=== PATIENT | female | born 1940 | race Caucasian/White ===

== ENCOUNTER 2017-07-08 19:23 | Inpatient (IN) | payer OTHER ==
[2017-07-08 19:40] VITALS: BMI 30.9
[2017-07-08] MEDS ORDERED: MORPHINE 2 MG/ML SYRINGE IM STA (19:44)
[2017-07-08] MEDS ORDERED: ZOFRAN 4 MG/2 ML IM STA (19:45)
--- NOTE | 2017-07-08 20:24 | CT ---
EXAM: CT pelvis without contrast HISTORY: Low back pain TECHNIQUE: Multi-slice transaxial helical with coronal and sagittal reformed images COMPARISON: None FINDINGS: The bones are osteopenic. There is suggestion of previous bone harvesting from the iliac c rests bilaterally. The femoral acetabular joint spaces are moderately narrowed bilaterally. Minimal osteophyte formation is detected at the sacroiliac joint spaces. The pubic symphysis has mild norah nal osteophyte formation. There postsurgical changes in the lumbar region. There is anterolisthesis of L4 on L5 of 8.5 mm. The aorta and iliac arteries are atherosclerotic. The visible intestines have normal caliber. The u terus is absent and there are no adnexal masses. No lymphadenopathy or ascites are appreciated. Div erticula arise from sigmoid colon without CT evidence of diverticulitis. The bones are free of suspicious osteolytic or osteoblastic lesions. IMPRESSION: 1. No acute fracture or subluxation. 2. Osteopenia and osteoarthritis. 3. Colonic diverticulosis without CT evidence of diverticulitis. 4. Postsurgical changes in the lumbar region.
--- NOTE | 2017-07-08 20:28 | CT ---
EXAM: CT thoracic spine without contrast HISTORY: Back pain TECHNIQUE: Multislice helical with reformatted images COMPARISON: None FINDINGS: The bones are diffusely osteopenic. There is a mild anterior wedge compression deformity at T4 that is probably chronic. There is 21 degrees of dextroscoliosis between T6 and T11. The inter vertebral joint spaces are moderately narrowed diffusely. No acute fracture or listhesis are appreci ated. No significant disc herniation or central canal stenosis are appreciated. There is suggestion of multilevel neural foramen stenosis secondary to facet hypertrophy. IMPRESSION: 1. No acute fracture or listhesis. 2. Mild chronic compression deformity at T4. 3. Moderate diffuse degenerative disc disease. 4. Osteopenia. 5. 21 degrees of dextroscoliosis between T6 and T11. 5. Multilevel neural foramen stenosis secondary to facet hypertrophy.
--- NOTE | 2017-07-08 20:32 | CT ---
EXAM: CT lumbar spine without contrast HISTORY: Low back pain TECHNIQUE: Multi-slice transaxial helical with coronal and sagittal reformatted views. COMPARISON: None FINDINGS: There are six [id number] lumbar-type vertebrae. Paired transpedicular screws are inta ct and in satisfactory position and L3-L4. There is suggestion of previous intervertebral fusion at L4-L5, L5-L6, and L6-S1. The facets are ankylosed between L4-L5, L5 and L6, and L6-S1. The nonfused intervertebral levels are moderately narrowed diffusely. There is retrolisthesis of L1 on L2 of 2.3 mm and retrolisthesis of L2 on L3 of 2.1 mm. In addition, there is anterolisthesis of L5 on L6 of 5 .9 mm. No acute fracture or listhesis are detected in the vertebrae have normal height. The bones di ffuse osteopenia. The aorta is atherosclerotic. There is nonspecific fat stranding surrounding the right kidney. A nonobstructing calculus at the inferior pole of the right kidney is 5.2 mm. There i s suggestion of mild right ureterectasis of undetermined etiology. Segmental analysis: The images are acquired without orthogonal technique. No central canal stenosis is appreciated. There is suggestion of minimal to mild multilevel neural foramen stenosis. IMPRESSION: 1. No acute fracture or listhesis. 2. Mild right ureterectasis of undetermined etiology. Nonobstructing right nephrolith. 3. Previous posterior longitudinal lumbar spinal fusion at L3-L4. Previous intervertebral fusion tinsley ggested at L4-L5, L5-L6, and L6-S1. 4. Osteopenia and ASCVD. 5. Grade 1 retrolisthesis of L1 on L2 and L2 on L3. 6. Grade 1 anterolisthesis of L5 on L6.
--- NOTE | 2017-07-08 20:51 | CT ---
EXAM: CT abdomen and pelvis without contrast HISTORY: Hematuria and back pain TECHNIQUE: Multi-slice transaxial helical with coronal and sagittal reformed images COMPARISON: CT lumbar spine from 07/08/[address] pelvis from 07/08/2017 FINDINGS: The heart size is normal. A moderate hiatus hernia is noted. No pericardial or pleural ef fusions are detected. Calcified mediastinal right hilar lymph nodes are noted. Minimal dependent at electasis is noted. The hepatic attenuation is normal relative to the spleen. The gallbladder is surgically absent. No significant biliary dilatation is detected. The pancreas is mildly atrophic. The adrenal glands are normal. The spleen has normal size and attenuation. The left kidney has normal size and attenuatio n. A nonobstructing calculus at the inferior pole of the right kidney is 5.6 mm. There is fat stranding around the right kidney. There is mild right ureterectasis without evidence of an obstructing calcu aleks. No bladder calculi are evident. The bladder is incompletely full. The left renal collecting s ystem has normal caliber. The uterus is absent and there are no adnexal masses. Diverticula arise from sigmoid colon without CT evidence of diverticulitis. No intestinal distension is evident. The abdominal aorta is atherosclerotic with normal caliber. No lymphadenopathy or asci zenaida. The bones are free of suspicious osteolytic or osteoblastic lesions. IMPRESSION: 1. Nonspecific right perinephric edema and mild right ureterectasis of undetermined etiology. No ra diopaque obstructing calculus is appreciated. No obstructing ureterolithiasis appreciated. Urology c onsultation recommended. 2. Nonobstructing nephrolith at the inferior pole of the right kidney. 3. Moderate hiatus hernia. 4. Colonic diverticulosis without CT evidence of diverticulitis. 5. ASCVD.
[2017-07-08] MEDS ORDERED: SODIUM CHLORIDE 1,000 ML IV STA (21:01)
--- NOTE | 2017-07-08 21:04 | ED.PDOC ---
General ED Provider: Dr. ANGÉLICA LOMAS-ER Chief Complaint: Back Pain Stated Complaint: my back hurts--family says fever she denies it Time Seen by Physician: 19:35 Mode of Arrival: Walk-In Information Source: Patient, Family Exam Limitations: No limitations Primary Care Provider: CARLTON GARCIA Nursing and Triage Documentation Reviewed and Agree: Yes Reviewed sepsis parameters & appropriate labs ordered?: Yes System Inflammatory Response Syndrome: Not Applicable Sepsis Protocol: For patient's 13 years and over: Temp is 96.8 and below OR 101 and greater Pulse >90 BPM Resp >20/minute Acutely Altered Mental Status Are patient's symptoms suggestive of a new infection, such as: -Pneumonia -Skin, Soft Tissue -Endocarditis -UTI -Bone, Joint Infection -Implantable Device -Acute Abdominal Infection -Wound Infection -Meningitis -Blood Stream Catheter Infection -Unknown Complaint Exam - UTI Female Complaint/Exam Patient Complains of: Reports: Painful urination Onset/Duration: unknown Symptoms Are: Still present Timing: Constant Initial Severity: Mild Current Severity: Moderate Location of Pain: Reports: Right, Flank Associated Signs and Symptoms: Reports: Fever, Chills, Flank pain Patient Rh Status: Unknown CVA Tenderness: Yes Suprapubic Tenderness: No Differential Diagnoses: Pyelonephritis Review of Systems - Review Of Systems Constitutional: Reports: Chills, Fever Eyes: Reports: No symptoms Ears, Nose, Mouth, Throat: Reports: No symptoms Respiratory: Reports: No symptoms Cardiac: Reports: No symptoms GI: Reports: No symptoms : Reports: No symptoms Musculoskeletal: Reports: Back pain Skin: Reports: No symptoms Neurological: Reports: No symptoms Endocrine: Reports: No symptoms Hematologic/Lymphatic: Reports: No symptoms All Other Systems: Reviewed and Negative Past Medical History - Past Medical History Previously Healthy: Yes Endocrine: Reports: Unknown Cardiovascular: Reports: Unknown Respiratory: Reports: Unknown Hematological: Reports: Unknown Gastrointestinal: Reports: Unknown Genitourinary: Reports: Unknown Neuro/Psych: Reports: Unknown Musculoskeletal: Reports: Unknown Cancer: Reports: Unknown Last Menstrual Period: hysterectomy - Surgical History General Surgical History: Reports: Unknown - Family History Family History: Reports: Unknown - Social History Smoking Status: Former smoker Hx Substance Use: No Alcohol Screening: None Lives: With family - Immunizations Tetanus Shot up to Date: No (unknown) Physical Exam - Physical Exam Appearance: Well-appearing, No pain distress, Well-nourished Pain Distress: Moderate Eyes: TONO, EOMI, Conjunctiva clear ENT: Ears normal, Nose normal, Oropharynx normal Neck: Supple Respiratory: Airway patent, Breath sounds clear, Breath sounds equal, Respirations nonlabored Cardiovascular: RRR, Pulses normal, No rub, No murmur GI/: Soft, Nontender, No masses, Bowel sounds normal, No Organomegaly Musculoskeletal: Normal strength Skin: Warm, Dry, Normal color Neurological: Sensation intact, Alert, Oriented Psychiatric: Affect appropriate, Mood appropriate Interpretation - Radiology Interpretation Radiology Interpretation By: Radiologist Radiology Results: Positive Exam Interpreted: CT Scan Physician Notification - Case Discussed Physician Notified: dr garcia Time of Notification: 21:06 Critical Care Note - Critical Care Note Total Time (mins): 0 Course - Course Hematology/Chemistry: 07/08/17 20:10 07/08/17 20:10 Orders, Labs, Meds: Lab Review 07/08/17 07/08/17 07/08/17 20:00 20:10 20:10 WBC 25.90 H RBC 4.44 Hgb 13.5 Hct 41.4 MCV 93.2 MCH 30.4 MCHC 32.6 RDW Coeff of Merari 13.8 Plt Count 256 Neutrophils % (Manual) 47.0 Lymphocytes % (Manual) 50.0 Monocytes % (Manual) 1.0 Reactive Lymphocytes 2.0 Anisocytosis Not present Sodium 142 Potassium 4.2 Chloride 103 Carbon Dioxide 27 Anion Gap 16.2 BUN 14 Creatinine 0.96 Estimated GFR (MDRD) 56.00 BUN/Creatinine Ratio 14.58 Glucose 222 H Calcium 9.4 Total Bilirubin 1.2 AST 21 ALT 18 Alkaline Phosphatase 72 Total Protein 6.7 Albumin 3.6 Globulin 3.1 Albumin/Globulin Ratio 1.16 Urine Color Brown Urine Clarity Cloudy Urine pH 7.0 Ur Specific [place] 1.020 Urine Protein 2+ Urine Glucose (UA) 1+ Urine Ketones 1+ Urine Blood 3+ Urine Nitrite Positive Urine Bilirubin 1+ Urine Urobilinogen 1.0 Ur Leukocyte Esterase 1+ Urine Microscopic RBC 50-100 Urine Microscopic WBC 5-10 Ur Squamous Epith Cells Not present Orders Category Date Time Status ED IV/MEDIPORT/POWERPORT .ONCE EMERGENCY 07/08/17 21:01 Active CBC W/ AUTO DIFF Stat LAB 07/08/17 20:10 Completed COMPREHENSIVE METABOLIC PANEL Stat LAB 07/08/17 20:10 Completed MANUAL DIFFERENTIAL Stat LAB 07/08/17 20:10 Completed PT WITH INR Stat LAB 07/08/17 21:04 Ordered UA [URINALYSIS C & S IF INDICATED] Stat LAB 07/08/17 20:00 Completed URINE CULTURE Stat LAB 07/08/17 20:25 Received 0.9 % Sodium Chloride [Saline Flush] MEDS 07/08/17 21:01 Ordered 1 syr IVF PRN PRN Aztreonam [Azactam] 1 gm MEDS 07/09/17 05:00 Ordered 0.9 % Sodium Chloride [Sodium Chloride] 50 ml IV Q8HR Morphine Sulfate [Morphine 2 mg/ml Syringe] MEDS 07/08/17 19:44 Discontinued 4 mg IM ONCE STA Ondansetron HCl/Pf [Zofran 4 mg/2 ml] MEDS 07/08/17 19:45 Discontinued 4 mg IM ONCE STA Sodium Chloride 0.9% [Sodium Chloride] 1,000 ml MEDS 07/08/17 21:01 Active IV 100 mls/hr CT ABDOMEN/PELVIS WO CONTRAST Stat RADS 07/08/17 20:[address] LUMBAR SPINE W/O CONTRAST Stat RADS 07/08/17 19:[address] PELVIS W/O CONTRAST Stat RADS 07/08/17 19:[address] THORACIC SPINE W/O CONTRAST Stat RADS 07/08/17 19:49 Completed Medications Generic Name Dose Route Start Last Admin Trade Name Freq PRN Reason Stop Dose Admin Sodium Chloride 1,000 mls @ 100 mls/hr 07/08/17 21:01 Sodium Chloride IV 07/09/17 07:00 .Q10H STA Aztreonam 1 gm/ Sodium 50 mls @ 75 mls/hr 07/09/17 05:00 Chloride IV Q8HR BRAD Sodium Chloride 1 syr 07/08/17 21:01 Saline Flush IVF PRN PRN To flush IV Discontinued Medications Generic Name Dose Route Start Last Admin Trade Name Freq PRN Reason Stop Dose Admin Morphine Sulfate 4 mg 07/08/17 19:44 07/08/17 19:51 Morphine 2 Mg/Ml Syringe IM 07/08/17 19:45 4 mg ONCE STA Administration Ondansetron HCl 4 mg 07/08/17 19:45 07/08/17 19:53 Zofran 4 Mg/2 Ml IM 07/08/17 19:46 4 mg ONCE STA Administration Vital Signs: Temp Pulse Resp BP Pulse Ox 07/08/17 19:28 98.9 F 109 H 20 163/82 H 93 L Departure - Departure Time of Disposition: 21:06 Disposition: ADMITTED INPATIENT Discharge Problem: Pyelonephritis Instructions: Kidney Infection (ED) Condition: Fair Pt referred to PMD for follow-up: Yes IPMP verified?: No Allergies/Adverse Reactions: Allergies cephalexin monohydrate [From Keflex] Adverse Reaction (Verified 07/08/17 21:03) Rash Home Medications: Ambulatory Orders Duloxetine HCl [Cymbalta] 60 mg PO DAILY 05/28/13 Eszopiclone [Lunesta] 2 mg PO BEDTIME 05/28/13 Gabapentin [Neurontin] 300 mg PO BEDTIME 05/28/13 Rosuvastatin Calcium [Crestor] 10 mg PO BEDTIME 05/28/13 Sitagliptin Phosphate [Januvia] 50 mg PO DAILY 05/28/13 Warfarin Sodium [Coumadin] 6 mg PO DAILY 05/28/13 Hydrocodone/Acetaminophen [Hydrocodone-Acetamin 7.5-325] 1 tab PO TID 07/08/17 Potassium Chloride [K-Dur] 20 meq PO BID 07/08/17 Disposition Discussed With: Patient, Family
[2017-07-08] MEDS ORDERED: MORPHINE 2 MG/ML SYRINGE IVP PRN (21:10)
[2017-07-08] MEDS ORDERED: ZOFRAN 4 MG/2 ML IVP PRN (21:11)
[2017-07-08] MEDS ORDERED: ROCEPHIN 1 GM in SODIUM CHLORIDE 50 ML IV STA (22:53)
[2017-07-08] MEDS ORDERED: ROCEPHIN ONE (23:02)
[2017-07-09] MEDS ORDERED: AZACTAM 1 GM in SODIUM CHLORIDE 50 ML IV SCH (05:00)
[2017-07-09] MEDS ORDERED: TORADOL IVP PRN (07:48)
[2017-07-09] MEDS: NORCO 7.5-325 PO SCH ×3 (08:35→20:45)
[2017-07-09] MEDS: AZACTAM 1 GM in SODIUM CHLORIDE 50 ML IV SCH ×2 (08:48→20:43)
[2017-07-09] MEDS: K-DUR PO SCH ×2 (08:48→20:43)
[2017-07-09] MEDS: CYMBALTA PO SCH (08:49)
[2017-07-09] MEDS: JANUVIA PO SCH (08:49)
[2017-07-09] MEDS ORDERED: NON-FORMULARY MEDICATION (Warfarin Sodium [Coumadin] 6 MG) PO SCH (09:00)
[2017-07-09] MEDS ORDERED: NON-FORMULARY MEDICATION (Duloxetine Hcl [Cymbalta] 60 MG) PO SCH (09:00)
[2017-07-09] MEDS ORDERED: NON-FORMULARY MEDICATION (Sitagliptin Phosphate [Januvia] 50 MG) PO SCH (09:00)
--- NOTE | 2017-07-09 10:44 | PCM.PROG ---
Attending Provider: ATTENDING PROVIDER: Dr. CARLTON HERNANDEZ This patient is seen with Brynn Sepulveda, Nurse Practitioner. DATE OF SERVICE: 07/09/17 SUBJECTIVE: This 76 year old WHITE/ F was hospitalized 07/08/17. The patient is lying in bed, alert. She is still complaining of right CVA tenderness. She is afebrile, no vomiting. Kidney function normal. REVIEW OF SYSTEMS: CONSTITUTIONAL: Fatigue. No night sweats. No malaise, lethargy. No fever or chills. HEENT: Eyes: No visual changes. No eye pain. No eye discharge. ENT: No runny nose. No epistaxis. No sinus pain. No odynophagia. No congestion. RESPIRATORY: No cough, no congestion. No hemoptysis. No shortness of breath. CARDIOVASCULAR: No angina symptoms. No CHF symptoms. No atypical chest pain for CAD. No palpitations. No orthopnea.. GASTROINTESTINAL: No abdominal pain. No nausea or vomiting. No diarrhea or constipation. No hematemesis. No hematochezia. GENITOURINARY: No urgency. No frequency. No dysuria. No hematuria. No obstructive symptoms. No discharge. No pain. No significant abnormal bleeding. MUSCULOSKELETAL: Right CVA tenderness. NEUROLOGICAL: Awake, alert, oriented to time, place and person. No headache. No neck pain. No syncope. No seizures. No dizziness. PSYCHIATRIC: Not anxious. No depression. No suicidal thoughts. No homicidal thoughts. SKIN: No rash. No lesions. No wounds. ENDOCRINE: No unexplained weight loss. No weight gain. HEMATOLOGIC/LYMPHATIC: No anemia. No purpura. No petechiae. No prolonged or excessive bleeding. No palpable lymph nodes. PHYSICAL EXAMINATION: GENERAL: The patient is awake, alert and oriented, lying in bed in no distress. VITAL SIGNS: Temperature 98.4 F, Pulse 71, Respiratory Rate 16, BP 119/68, Pulse Ox 94% HEENT: Head normocephalic, atraumatic. Eyes: Extraocular muscles are intact. Pupils are equal, round and reactive to light and accommodation. Ears: No lesions. Nose appeared normal. Throat: No exudate or erythema. NECK: Supple. No JVD, no carotid bruit. No lymphadenopathy or thyromegaly. LUNGS: Clear to auscultation. Percussion note normal. Chest symmetrical. HEART: S1, S2, no S3. No murmurs. No cyanosis or clubbing. No ascites. Pulses: Dorsalis pedis and posterior tibial pulses +1 to +2 both sides. ABDOMEN: Soft. Non-tender. Bowel sounds active. Right CVA tenderness. No mass felt. EXTREMITIES: No edema. Full range of motion of all extremities, equal. NEUROLOGIC: No focal deficit. Cranial nerves II through XII are grossly intact. No headache, no double vision or headache. SKIN: Not dry. Intact. Turgor-normal. LYMPHATIC: No palpable lymph nodes/no lymphedema. MUSCULOSKELETAL: Normal joints with no swelling. Muscle tone is normal. LAB REVIEW: 07/09/17 04:50 07/09/17 05:35 07/09/17 05:35: Sodium 142, Potassium 3.8, Chloride 106, Carbon Dioxide 27, Anion Gap 12.8, BUN 11, Creatinine 0.76, Estimated GFR (MDRD) 74.00, BUN/ Creatinine Ratio 14.47, Glucose 142 H D, Calcium 8.9, Total Bilirubin 0.8, AST 17, ALT 15, Alkaline Phosphatase 55, Total Protein 5.6 L, Albumin 3.0 L, Globulin 2.6, Albumin/Globulin Ratio 1.15, TSH 1.496 07/09/17 04:50: PT 31.6 H D, INR 3.21 07/09/17 04:50: WBC 17.45 H D, RBC 3.70 L, Hgb 11.4 L, Hct 35.1 L D, MCV 94.9, MCH 30.8, MCHC 32.5, RDW Coeff of Merari 13.9, Plt Count 239, Immature Gran % (Auto ) 0.5, Neut % (Auto) 58.6, Lymph % (Auto) 37.3, [place] % (Auto) 3.2, Eos % (Auto) 0.2, Baso % (Auto) 0.2, Immature Gran # (Auto) 0.1, Neut # (Auto) 10.2 H, Lymph # (Auto) 6.5 H, [place] # (Auto) 0.6, Eos # (Auto) 0.0, Baso # (Auto) 0.0 ASSESSMENT: 1. RIGHT PYELONEPHRITIS 2. DEHYDRATION PLAN: 1. Hold Coumadin today 2. D/C Morphine 3. Toradol 30 mg q.8 IV p.r.n. Plan and coordination of the patient's care discussed in the presence of Purchase Order Checker and nurse. CONDITION: Staple SCRIBED BY: HAZEL SARABIA Field Crop Farmworker scribed while in presence of service performed by Dr. Hernandez/Brynn Sepulveda APRN on 07/09/17 ([id number])
[2017-07-09] MEDS: HUMULIN R SUBCUT PRN (17:15)
[2017-07-09] MEDS: CRESTOR PO SCH (20:44)
[2017-07-09] MEDS: NEURONTIN PO SCH (20:44)
[2017-07-09] MEDS: LUNESTA PO SCH (20:44)
[2017-07-09] MEDS ORDERED: ESZOPICLONE 2 MG PO SCH (21:00)
[2017-07-09] MEDS: ROCEPHIN 1 GM in SODIUM CHLORIDE 50 ML IV SCH (21:41)
[2017-07-10] MEDS: K-DUR PO SCH ×2 (09:02→21:11)
[2017-07-10] MEDS: NORCO 7.5-325 PO SCH ×3 (09:02→21:12)
[2017-07-10] MEDS: JANUVIA PO SCH (09:02)
[2017-07-10] MEDS: AZACTAM 1 GM in SODIUM CHLORIDE 50 ML IV SCH ×2 (09:02→22:20)
[2017-07-10] MEDS: CYMBALTA PO SCH (09:02)
--- NOTE | 2017-07-10 09:55 | PCM.PROG ---
Attending Provider: ATTENDING PROVIDER: Dr. CARLTON HERNANDEZ DATE OF SERVICE: 07/10/17 SUBJECTIVE: This 76 year old WHITE/ F was hospitalized 07/08/17. The patient is hospitalized with right pyelonephritis. The patient has gram negative rods. Practically no pain now. REVIEW OF SYSTEMS: CONSTITUTIONAL: No night sweats. No fatigue, malaise, lethargy. No fever or chills. HEENT: Eyes: No visual changes. No eye pain. No eye discharge. ENT: No runny nose. No epistaxis. No sinus pain. No odynophagia. No congestion. RESPIRATORY: No cough, no congestion. No hemoptysis. No shortness of breath. CARDIOVASCULAR: No angina symptoms. No CHF symptoms. No atypical chest pain for CAD. No palpitations. No orthopnea.. GASTROINTESTINAL: Appetite has improved. No abdominal pain. No nausea or vomiting. No diarrhea or constipation. No hematemesis. No hematochezia. GENITOURINARY: No urgency. No frequency. No dysuria. No hematuria. No obstructive symptoms. No discharge. No pain. No significant abnormal bleeding. MUSCULOSKELETAL: Mild right flank discomfort. NEUROLOGICAL: Awake, alert, oriented to time, place and person. No headache. No neck pain. No syncope. No seizures. No dizziness. PSYCHIATRIC: Not anxious. No depression. No suicidal thoughts. No homicidal thoughts. SKIN: No rash. No lesions. No wounds. ENDOCRINE: No unexplained weight loss. No weight gain. HEMATOLOGIC/LYMPHATIC: No anemia. No purpura. No petechiae. No prolonged or excessive bleeding. No palpable lymph nodes. PHYSICAL EXAMINATION: GENERAL: The patient is awake, alert and oriented, lying in bed in no distress. VITAL SIGNS: Temperature 97.9 F, Pulse 75, Respiratory Rate 17, BP 133/79, Pulse Ox 93% HEENT: Head normocephalic, atraumatic. Eyes: Extraocular muscles are intact. Pupils are equal, round and reactive to light and accommodation. Ears: No lesions. Nose appeared normal. Throat: No exudate or erythema. NECK: Supple. No JVD, no carotid bruit. No lymphadenopathy or thyromegaly. LUNGS: Clear to auscultation. Percussion note normal. Chest symmetrical. HEART: S1, S2, no S3. No murmurs. No cyanosis or clubbing. No ascites. Pulses: Dorsalis pedis and posterior tibial pulses +1 to +2 both sides. ABDOMEN: Soft. Non-tender. Bowel sounds active. No CVA tenderness. No mass felt. EXTREMITIES: No edema. Full range of motion of all extremities, equal. NEUROLOGIC: No focal deficit. Cranial nerves II through XII are grossly intact. No headache, no double vision or headache. SKIN: Warm and dry. Intact. Turgor-normal. LYMPHATIC: No palpable lymph nodes/no lymphedema. MUSCULOSKELETAL: Normal joints with no swelling. Muscle tone is normal. LAB REVIEW: 07/10/17 04:45 07/10/17 04:45 07/10/17 04:45: Sodium 139, Potassium 4.2, Chloride 103, Carbon Dioxide 29, Anion Gap 11.2, BUN 14, Creatinine 0.78, Estimated GFR (MDRD) 71.00, BUN/ Creatinine Ratio 17.94, Glucose 119 H, Calcium 9.2, Total Bilirubin 0.9, AST 19 , ALT 18, Alkaline Phosphatase 57, Total Protein 5.9, Albumin 3.0 L, Globulin 2.9, Albumin/Globulin Ratio 1.03, TSH 1.872 07/10/17 04:45: PT 31.4 H, INR 3.19 07/10/17 04:45: WBC 13.42 H, RBC 3.74 L, Hgb 11.5 L, Hct 35.7 L, MCV 95.5, MCH 30.7, MCHC 32.2, RDW Coeff of Merari 14.0, Plt Count 213, Immature Gran % (Auto) 0.2, Neut % (Auto) 46.5, Lymph % (Auto) 46.9, [place] % (Auto) 5.3, Eos % (Auto) 0.9, Baso % (Auto) 0.2, Immature Gran # (Auto) 0.0, Neut # (Auto) 6.2, Lymph # ( Auto) 6.3 H, [place] # (Auto) 0.7, Eos # (Auto) 0.1, Baso # (Auto) 0.0 ASSESSMENT: Please see below. 1. Acute pyelonephritis, right side seems to be resolving. Gram negative rods should ge sensitive to Azactam/Rocephin combination. PLAN: 1. D/C IV fluids 2. D/C telemetry 3. Continue IV antibiotics 4. Advised to be up and about 5. CT scan of abdomen and pelvis tomorrow to followup on kidney problems Plan and coordination of the patient's care discussed in the presence of Infantry Unit Leader and nurse. CONDITION: STABLE SCRIBED BY: HAZEL SARABIA Health Promoter scribed while in presence of service performed by Dr. CARLTON HERNANDEZ on 07/10/17 ([id number])
--- NOTE | 2017-07-10 09:57 | HP ---
DATE OF SERVICE: 07/09/17 REASON FOR HOSPITALIZATION/HISTORY OF PRESENT ILLNESS: This is a 76 year old white female who presented to the emergency room with her family complaining that her back was hurting on the right side. She had a low grade fever for a couple of days. This started late on Sunday night. PAST MEDICAL HISTORY: Hyperglycemia Severe cervical radiculopathy Degenerative joint disease, severe Depression Diabetes Mellitus type 2 Recurrent DVT Right total knee replacement Hypertension Dyslipidemia History of CLL PAST SURGICAL HISTORY: C spine surgery by Dr. Barillas Back injection by Dr. Aguayo every 3 months Right total knee replacement History of right shoulder surgery Colonoscopy in September of 2010 REVIEW OF SYSTEMS: CONSTITUTIONAL: No night sweats. Malaise. Fever or chills. HEENT: Eyes: No visual changes. No eye pain. No eye discharge. ENT: No runny nose. No epistaxis. No sinus pain. No sore throat. No odynophagia. No ear pain. No congestion. RESPIRATORY: No cough, no congestion. No hemoptysis. No shortness of breath. CARDIOVASCULAR: No angina symptoms. No CHF symptoms. No atypical chest pain for CAD. No palpitations. No orthopnea. GASTROINTESTINAL: No abdominal pain. No nausea or vomiting. No diarrhea or constipation. No hematemesis. No hematochezia. GENITOURINARY: No urgency. No frequency. Slight dysuria. No hematuria. No obstructive symptoms. No discharge. No pain. No significant abnormal bleeding. MUSCULOSKELETAL: No musculoskeletal pain. No joint swelling. No arthritis. Right flank pain. NEUROLOGICAL: No headache. No neck pain. No syncope. No seizures. No dizziness. PSYCHIATRIC: Not anxious. No depression. No suicidal thoughts. No homicidal thoughts. SKIN: No rash. No lesions. No wounds. ENDOCRINE: No unexplained weight loss. No weight gain. HEMATOLOGIC/LYMPHATIC: No anemia. No purpura. No petechiae. No prolonged or excessive bleeding. No palpable lymph nodes. PERSONAL/FAMILY/SOCIAL HISTORY: She is a former smoker and no alcohol or illicit drug use. She currently lives at home. MEDICATIONS: Cymbalta 60mg daily Lunesta 2mg at bedtime Neurontin 300mg at bedtime Crestor 10mg daily Januvia 50mg daily Coumadin 6mg daily [place] 7.5 three times a day PRN Potassium Chloride 20meq twice a day ALLERGIES: Keflex PHYSICAL EXAMINATION: GENERAL: The patient is alert and oriented times three. VITAL SIGNS: Temperature 98.9, heart rate 109, respiratory rate 20, blood pressure 163/82 and pulse ox 93%. HEENT: Head normocephalic, atraumatic. Eyes: Extraocular muscles are intact. Pupils are equal, round and reactive to light and accommodation. Ears: No lesions. Nose appeared normal. Throat: No exudate or erythema. NECK: Supple. No JVD, no carotid bruit. No lymphadenopathy or thyromegaly. LUNGS: Diminished breath sounds bilaterally. Clear to auscultation. Percussion note normal. Chest symmetrical. HEART: S1, S2, no S3. No murmurs. No cyanosis or clubbing. No ascites. Pulses: Dorsalis pedis and posterior tibial pulses +1 to +2 both sides. ABDOMEN: Soft. Nontender. Bowel sounds active. Right CVA tenderness. No mass felt. EXTREMITIES: No edema. Full range of motion of all extremities, equal. NEUROLOGIC: No focal deficit. Cranial nerves II through XII are grossly intact. No headache, no double vision or headache. SKIN: Not dry. Intact. Turgor - normal. LYMPHATIC: No palpable lymph nodes/no lymphedema. MUSCULOSKELETAL: Normal joints with no swelling. Muscle tone is normal. LABS: CT scan revealed right perinephric edema. WBC 25,000, hgb 13.5, hct 41.4, plt count 256, sodium 142, potassium 4.2, BUN 14, creatinine 0.96 and glucose 222, AST 21, ALT 18, total protein 6.7, Albumin 3.6. Urine was ground, cloudy, 2+ protein, 1+ glucose, 1+ ketones and 3+ blood, nitrate positive, 1+ bilirubin. ASSESSMENT: 1. Acute right pyelonephritis 2. Fever 3. Dehydration PLAN: 1. Will admit 2. Started on Azactam IV 3. Normal saline at 75cc an hour 4. Zofran 4mg IV Q 6 hours as needed for nausea 5. Continue home medication 6. CBC and CMP daily 7. INR daily 8. Routine telemetry orders 9. Morphine 2mg Q 6 hours as needed for pain 10.Urine culture 11.Regular diet Will follow closely. TIME SPENT: More than 70 minutes. MTDD
--- NOTE | 2017-07-10 13:01 | PN ---
DATE OF SERVICE: 07/08/17 - ADMITTING NOTE SUBJECTIVE: The patient was brought to the emergency room by the family because she was confused, was having a lot of back pain. The patient, on further examination in the emergency room had an abnormal UA which revealed UA positive for leukocyte esterase and some WBCs, RBCs. CT scan of the abdomen showed left-sided acute pyelonephritis with stranding. The patient has severe DJD spine, especially cervical spine with deformity and surgery done two years ago. She is being followed by Pain Management for spine problems by Dr. Aguayo. PHYSICAL EXAMINATION: GENERAL: The patient seems to be oriented to time, place and person in the emergency room. VITAL SIGNS: Temperature 98.9, pulse 109, BP 163/82, respiratory rate 20, 02 93. HEENT: Head normocephalic, atraumatic. Eyes: Extraocular muscles are intact. Pupils are equal, round and reactive to light and accommodation. Ears: No lesions. Nose appeared normal. Throat: No exudate or erythema. NECK: Supple. No JVD, no carotid bruit. No lymphadenopathy or thyromegaly. LUNGS: Clear to auscultation. Percussion note normal. Chest symmetrical. HEART: S1, S2, no S3. No murmurs. No cyanosis or clubbing. No ascites. Pulses: Dorsalis pedis and posterior tibial pulses +1 to +2 both sides. ABDOMEN: Soft. Nontender. Bowel sounds active. No CVA tenderness. No mass felt. EXTREMITIES: No edema. Full range of motion of all extremities, equal. NEUROLOGIC: No focal deficit. Cranial nerves II through XII are grossly intact. No headache, no double vision or headache. SKIN: Somewhat dry. Intact. Turgor - normal. LYMPHATIC: No palpable lymph nodes/no lymphedema. MUSCULOSKELETAL: Normal joints with no swelling. Muscle tone is normal. ASSESSMENT: 1. ACUTE PYELONEPHRITIS 2. DEHYDRATION 3. SEVERE DJD SPINE STATUS POST C-SPINE SURGERY FOLLOWED BY PAIN MANAGEMENT PLAN: 1. Give IV fluids 2. Rocephin 1 gm q.24 3. Azactam 1 gm q.12 4. Daily CBC, CMP CONDITION: Stable TIME SPENT: More than 30 minutes. Plan and coordination of the patient's care discussed in the presence of nurse. BUD
--- NOTE | 2017-07-10 15:39 | RS.OTINEVL ---
Subjective - Patient information Date of Evaluation: 07/10/17 Date of Arrival on Unit: 07/08/17 Usual Living Arrangement: Alone Living Arrangement Comments: Children check on her often Home Environment: House Surgical History: Shoulder Replacement, Tonsillectomy, Hysterectomy Surgical History Comments:: 4 back surgeries, neck surgery, R TKA, Subjective Information/ Patient Comments:: "My head is hurting." "I have a walker at home but it was my husbands. I used one with my knee surgery." - Level of function Prior to this admission, the patient could do the following:: Independent Selfcare, Independent ADL's, Independent Ambulation, Partially Dependent Ambulation, Perform Weatherization And Housing Inspector/Cooking, Drive, Participated in Social Activities Outside home, Volunteer/Work Abilities prior to this admission: Pt was independent with self care management. Pt is independent with all ADLS. Pt is not always steady on her feet. Current Equipment Used at Home: glucometer Pain Assessment - Pain Pain Score: 3 Pain Location Body Site: Head Pain Alleviating Factors: Medication Interventions - Objective Patient Orientation: Person, Place, Time, Situation Current Interventions: IV's Observation: Pt is weak and has some unsteadiness in her walking. Interventions - ROM Right Upper Extremity AROM: Slight limitation Left Upper Extremity AROM: Slight limitation - Strength Right Upper Extremity Strength: Mild Weakness Left Upper Extremity Strength: Mild Weakness - Sensation Right Upper Extremity Sensation: Intact/Normal Left Upper Extremity Sensation: Intact/Normal Balance - Sitting Balance Static Sitting Balance: Good Dynamic Sitting Balance: Good - Standing Balance Static Standing Balance: Fair Dynamic Standing Balance: Fair - Comments Balance Assessment Comments: Pt is not always steady on her feet. ADL Skills - Self Feeding Self Feeding: Independent - Grooming Grooming: Supervision, Min Assist - Bathing Bathing UE: Supervision Bathing LE: Supervision - Toilet Management Toileting Management: Independent Functional Mobility - Bed Mobility Rolling R/L: Independent Scooting: Independent Supine to Sit: Supervision Sit to Supine: Supervision - Transfers Sit to Stand: CGA Stand to Sit: CGA Stand Pivot Transfers: CGA - Ambulation Weight Bearing Status: FWB Assistive Device Used: Rolling Walker Assistance needed with Ambulation: Supervision - Safety Awareness Safety Awareness: Good STACY INDEX SCORE: 18/20 Additional Treatment Performed - Time with patient Total treatment time: 40 Activities Patient Interests:: Watching Television Patient Education Patient Education: Education of diagnosis, Home Exercise Program Teaching Recipient: Patient Teaching Methods: Discussion Assessment Problem List:: Decreased level of function Rehab Potential: Good Further Therapy Indicated?: Yes Evaluation Complexity: HISTORY: Medium, EXAM OF BODY SYSTEMS: Medium, CLINICAL DECISION MAKING: Medium Short Term Goals - Goals GOAL 1: Pt to tolerate dynamic standing for 8-10 minutes. Goal to be met by: 07/17/17 GOAL 2: Pt to increase safety of sink level ADLS. Goal to be met by: 07/17/17 GOAL 3: Pt to increase BUE strength to 4+/5 Goal to be met by: 07/17/17 GOAL 4: Pt to be independent with Home exercise program. Goal to be met by: 07/17/17 Network Relay Tester Goals GOAL 1: Pt to tolerate dynamic standing for 15 minutes. Goal to be met by: 07/20/17 GOAL 2: Pt to increase safety of sink level ADLS to be I. Goal to be met by: 07/20/17 GOAL 3: Pt to increase BUE strength to 4+/5 Goal to be met by: 07/20/17 Plan Plan of Care: Therapeutic EX, Neuromuscular Re-Educ, Therapeutic Activity, Self- Care/Home Management Frequency of Treatment: 1-2 X day, as tolerated Duration of Treatment: 2 Weeks Anticipated Discharge Destination: Home Has the Physician been added for Co-signature?: Yes
[2017-07-10] MEDS: LUNESTA PO SCH (21:11)
[2017-07-10] MEDS: ROCEPHIN 1 GM in SODIUM CHLORIDE 50 ML IV SCH (21:12)
[2017-07-10] MEDS: CRESTOR PO SCH (21:12)
[2017-07-10] MEDS: NEURONTIN PO SCH (21:12)
--- NOTE | 2017-07-11 07:20 | CT ---
EXAM: CT abdomen pelvis with contrast HISTORY: Lower abdominal pain and nausea COMPARISON: CT abdomen pelvis 07/08/2017 and multiple priors TECHNIQUE: Serial axial images of the abdomen pelvis were performed after IV contrast was administer ed. These were obtained from the lung bases through the inferior pelvis. FINDINGS: The lung bases are clear. There is a small hiatal hernia with distal esophageal thickening. The liver is unremarkable. The ga llbladder has been resected. The adrenal glands are normal. There is a 0.4 cm nonobstructing right renal stone. The right perinephric edema and ureterectasis has improved. Left kidney is normal. The spleen is normal. The pancreas is unremarkable. The stomach is normal. Small bowel in the abdomen and pelvis is unremarkable. There is diverticulosis without diverticuliti s. Urinary bladder is partially distended. There has been a hysterectomy. There is no free air, fr ee fluid or lymphadenopathy. Delayed images demonstrates contrast in the ureters and extending into the urinary bladder. The osseous structures demonstrates postsurgical changes in the lower lumbar sp ine with fusion hardware at L2-L3. There is 0.4 cm of anterolisthesis of L4 on L5. IMPRESSION: 1. Interval improvement in right perinephric edema and ureterectasis. There is no obstructing stone and delayed phase imaging demonstrates contrast throughout the right ureter. Unchanged nonobstructi ng right renal stone is present. 2. Stable hiatal hernia with minimal wall thickening. 3. Diverticulosis without diverticulitis. 4. Stable surgical changes of the spine and fusion hardware.
[2017-07-11] MEDS: K-DUR PO SCH ×2 (09:24→20:56)
[2017-07-11] MEDS: NORCO 7.5-325 PO SCH ×3 (09:24→20:56)
[2017-07-11] MEDS: JANUVIA PO SCH (09:24)
[2017-07-11] MEDS: AZACTAM 1 GM in SODIUM CHLORIDE 50 ML IV SCH ×2 (09:24→20:55)
[2017-07-11] MEDS: CYMBALTA PO SCH (09:24)
--- NOTE | 2017-07-11 10:25 | PCM.PROG ---
Attending Provider: ATTENDING PROVIDER: Dr. CARLTON HERNANDEZ DATE OF SERVICE: 07/11/17 SUBJECTIVE: This 76 year old WHITE/ F was hospitalized 07/08/17 with acute pyelonephritis, right-sided with gram negative rods. The patient is on Azactam and Rocephin. She is supposed to be allergic to Cephalexin but is not. REVIEW OF SYSTEMS: CONSTITUTIONAL: No night sweats. No fatigue, malaise, lethargy. No fever or chills. HEENT: Eyes: No visual changes. No eye pain. No eye discharge. ENT: No runny nose. No epistaxis. No sinus pain. No odynophagia. No congestion. RESPIRATORY: No cough, no congestion. No hemoptysis. No shortness of breath. CARDIOVASCULAR: No angina symptoms. No CHF symptoms. No atypical chest pain for CAD. No palpitations. No orthopnea.. GASTROINTESTINAL: No abdominal pain. No nausea or vomiting. No diarrhea or constipation. No hematemesis. No hematochezia. GENITOURINARY: No urgency. No frequency. No dysuria. No hematuria. No obstructive symptoms. No discharge. No pain. No significant abnormal bleeding. MUSCULOSKELETAL: Neck pain as usual. NEUROLOGICAL: Awake, alert, oriented to time, place and person. No headache. No neck pain. No syncope. No seizures. No dizziness. PSYCHIATRIC: Not anxious. No depression. No suicidal thoughts. No homicidal thoughts. SKIN: No rash. No lesions. No wounds. ENDOCRINE: No unexplained weight loss. No weight gain. HEMATOLOGIC/LYMPHATIC: No anemia. No purpura. No petechiae. No prolonged or excessive bleeding. No palpable lymph nodes. PHYSICAL EXAMINATION: GENERAL: The patient is awake, alert and oriented, lying in bed in no distress. VITAL SIGNS: Temperature 97.9 F, Pulse 73, Respiratory Rate 20, BP 126/69, Pulse Ox 95% HEENT: Head normocephalic, atraumatic. Eyes: Extraocular muscles are intact. Pupils are equal, round and reactive to light and accommodation. Ears: No lesions. Nose appeared normal. Throat: No exudate or erythema. NECK: Supple. No JVD, no carotid bruit. No lymphadenopathy or thyromegaly. LUNGS: Clear to auscultation. Percussion note normal. Chest symmetrical. HEART: S1, S2, no S3. No murmurs. No cyanosis or clubbing. No ascites. Pulses: Dorsalis pedis and posterior tibial pulses +1 to +2 both sides. ABDOMEN: Soft. Flat. Non-tender. Bowel sounds active. No CVA tenderness. No mass felt. EXTREMITIES: No edema. Full range of motion of all extremities, equal. NEUROLOGIC: No focal deficit. Cranial nerves II through XII are grossly intact. No headache, no double vision or headache. SKIN: Warm and dry. Intact. Turgor-normal. LYMPHATIC: No palpable lymph nodes/no lymphedema. MUSCULOSKELETAL: Normal joints with no swelling. Muscle tone is normal. LAB REVIEW: 07/11/17 04:30 07/11/17 04:30 07/11/17 04:30: Sodium 141, Potassium 4.3, Chloride 106, Carbon Dioxide 28, Anion Gap 11.3, BUN 11, Creatinine 0.73, Estimated GFR (MDRD) 77.00, BUN/ Creatinine Ratio 15.06, Glucose 119 H, Calcium 9.2, Total Bilirubin 0.7, AST 16 , ALT 16, Alkaline Phosphatase 66, Total Protein 5.7 L, Albumin 3.0 L, Globulin 2.7, Albumin/Globulin Ratio 1.11 07/11/17 04:30: WBC 10.94 H, RBC 3.64 L, Hgb 10.8 L, Hct 34.2 L, MCV 94.0, MCH 29.7, MCHC 31.6 L, RDW Coeff of [place] 13.6, Plt Count 221, Immature Gran % (Auto) 0.3, Neut % (Auto) 31.6, Lymph % (Auto) 60.2 H, [place] % (Auto) 5.9, Eos % (Auto) 1.6, Baso % (Auto) 0.4, Immature Gran # (Auto) 0.0, Neut # (Auto) 3.5, Lymph # ( Auto) 6.6 H, [place] # (Auto) 0.7, Eos # (Auto) 0.2, Baso # (Auto) 0.0 07/10/17 04:45: Thyroxine (T4) 7.1 07/09/17 04:50: Thyroxine (T4) 5.7 ASSESSMENT: ACUTE PYELONEPHRITIS, RIGHT-SIDED, SEEMS TO BE RESOLVING PLAN: CT scan of abdomen and pelvis to be done today with contrast. Plan and coordination of the patient's care discussed in the presence of Booking Manager and nurse. CONDITION: Stable SCRIBED BY: HAZEL SARABIA Staff Writer scribed while in presence of service performed by Dr. CARLTON HERNANDEZ on 07/11/17 ([id number])
[2017-07-11] MEDS: HUMULIN R SUBCUT PRN ×2 (11:56→20:54)
[2017-07-11] MEDS ORDERED: COUMADIN PO SCH (17:00)
[2017-07-11] MEDS: NEURONTIN PO SCH (20:56)
[2017-07-11] MEDS: LUNESTA PO SCH (20:56)
[2017-07-11] MEDS: CRESTOR PO SCH (20:56)
[2017-07-11] MEDS: ROCEPHIN 1 GM in SODIUM CHLORIDE 50 ML IV SCH (22:06)
[2017-07-12] MEDS: NORCO 7.5-325 PO SCH ×2 (08:30→14:40)
[2017-07-12] MEDS: K-DUR PO SCH (08:30)
[2017-07-12] MEDS: CYMBALTA PO SCH (08:30)
[2017-07-12] MEDS: JANUVIA PO SCH (08:30)
[2017-07-12] MEDS: AZACTAM 1 GM in SODIUM CHLORIDE 50 ML IV SCH (08:30)
--- NOTE | 2017-07-12 09:28 | PCM.PROG ---
Attending Provider: ATTENDING PROVIDER: Dr. CARLTON HERNANDEZ This patient is seen with Brynn Sepulveda, Nurse Practitioner. DATE OF SERVICE: 07/12/17 SUBJECTIVE: This 76 year old WHITE/ F was hospitalized 07/08/17. The patient is alert, lying in bed. The patient feels ready to go home. She has been up and about. She is eating 100% of meals. No flank pain. No nausea or fever. REVIEW OF SYSTEMS: CONSTITUTIONAL: Fatigue. No night sweats. No malaise, lethargy. No fever or chills. HEENT: Eyes: No visual changes. No eye pain. No eye discharge. ENT: No runny nose. No epistaxis. No sinus pain. No odynophagia. No congestion. RESPIRATORY: No cough, no congestion. No hemoptysis. No shortness of breath. CARDIOVASCULAR: No angina symptoms. No CHF symptoms. No atypical chest pain for CAD. No palpitations. No orthopnea.. GASTROINTESTINAL: No abdominal pain. No nausea or vomiting. No diarrhea or constipation. No hematemesis. No hematochezia. GENITOURINARY: No urgency. No frequency. No dysuria. No hematuria. No obstructive symptoms. No discharge. No pain. No significant abnormal bleeding. MUSCULOSKELETAL: No musculoskeletal pain; no joint swelling. NEUROLOGICAL: Awake, alert, oriented to time, place and person. No headache. No neck pain. No syncope. No seizures. No dizziness. PSYCHIATRIC: Not anxious. No depression. No suicidal thoughts. No homicidal thoughts. SKIN: No rash. No lesions. No wounds. ENDOCRINE: No unexplained weight loss. No weight gain. HEMATOLOGIC/LYMPHATIC: No anemia. No purpura. No petechiae. No prolonged or excessive bleeding. No palpable lymph nodes. PHYSICAL EXAMINATION: GENERAL: The patient is awake, alert and oriented, lying in bed in no distress. VITAL SIGNS: Temperature 97.6 F, Pulse 73, Respiratory Rate 18, BP 115/67, Pulse Ox 94% HEENT: Head normocephalic, atraumatic. Eyes: Extraocular muscles are intact. Pupils are equal, round and reactive to light and accommodation. Ears: No lesions. Nose appeared normal. Throat: No exudate or erythema. NECK: Supple. No JVD, no carotid bruit. No lymphadenopathy or thyromegaly. LUNGS: Clear to auscultation. Percussion note normal. Chest symmetrical. HEART: S1, S2, no S3. No murmurs. No cyanosis or clubbing. No ascites. Pulses: Dorsalis pedis and posterior tibial pulses +1 to +2 both sides. ABDOMEN: Soft. Non-tender. Bowel sounds active. No CVA tenderness. No mass felt. EXTREMITIES: No edema. Full range of motion of all extremities, equal. NEUROLOGIC: No focal deficit. Cranial nerves II through XII are grossly intact. No headache, no double vision or headache. SKIN: Not dry. Intact. Turgor-normal. LYMPHATIC: No palpable lymph nodes/no lymphedema. MUSCULOSKELETAL: Normal joints with no swelling. Muscle tone is normal. LAB REVIEW: 07/12/17 04:30 07/12/17 04:30 07/12/17 04:30: PT 13.9 H, INR 1.37 07/12/17 04:30: Sodium 142, Potassium 4.2, Chloride 105, Carbon Dioxide 28, Anion Gap 13.2, BUN 11, Creatinine 0.76, Estimated GFR (MDRD) 74.00, BUN/ Creatinine Ratio 14.47, Glucose 106, Calcium 9.3, Total Bilirubin 0.7, AST 15, ALT 15, Alkaline Phosphatase 64, Total Protein 5.9, Albumin 3.0 L, Globulin 2.9 , Albumin/Globulin Ratio 1.03 07/12/17 04:30: WBC 10.90 H, RBC 3.70 L, Hgb 11.1 L, Hct 34.6 L, MCV 93.5, MCH 30.0, MCHC 32.1, RDW Coeff of [place] 13.7, Plt Count 233, Neutrophils % (Manual) 40.0 L, Lymphocytes % (Manual) 54.0 H, Metamyelocytes % 1.0, Reactive Lymphocytes 5.0, Anisocytosis Not present 07/11/17 07:25: PT 17.2 H D, INR 1.72 ASSESSMENT: ACUTE PYELONEPHRITIS, RIGHT-SIDED, SEEMS TO BE RESOLVING PLAN: 1. Bactrim DS b.i.d. times 10 days. 2. Will see in Dr. Hernandez's office next week. 3. Increase fluids at home. Plan and coordination of the patient's care discussed in the presence of Drift Miner and nurse. CONDITION: Stable SCRIBED BY: HAZEL SARABIA, Driver Material Handler scribed while in presence of service performed by Dr. Hernandez/Brynn Sepulveda APRN on 07/12/17 ([id number])
--- NOTE | 2017-07-12 09:39 | CM.DICTOOL ---
ADMISSION: 07/08/17 21:09 DISCHARGE: 07/12/17 DATE OF SERVICE: 07/12/17 FINAL DIAGNOSIS PYELONEPHRITIS - KLEBSIELLA PNEUMONIA ASCVD DYSLIPIDEMIA DVT, BILATERAL LOWER EXTREMITIES BY HISTORY DIABETES, TYPE 2 DIVERTICULOSIS (CT ABD/PELVIS, 07/08/17) MODERATE HIATAL HERNIA (CT ABD/PELVIS, 07/08/17) DIFFUSE DDD SPINE (PAIN MANAGEMENT, DR. 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 DEPRESSION/ANXIETY LASIK EYE SURGERY BACK SURGERIES X4 FUSIONS AT L3-L4, L4-L5, L5-L6 AND L6-S1 CERVICAL SURGERY RIGHT SHOULDER PROSTHETIC TOTAL RIGHT KNEE REPLACEMENT HYSTERECTOMY CHOLECYSTECTOMY TONSILLECTOMY, FORMER SMOKER LAST VITALS Temp Pulse Resp BP Pulse Ox 97.6 F 73 18 115/67 94 L 07/12/17 05:19 07/12/17 05:19 07/12/17 05:19 07/12/17 05:19 07/12/17 05:19 ACTIVE HOME MEDICATIONS Hydrocodone Bitart/Acetaminophen ([place] 7.5-325) 1 tab PO TID [facility] Last Admin: 07/12/17 08:30 Dose: 1 tab Duloxetine HCl (Cymbalta) 60 mg PO DAILY [facility] Last Admin: 07/12/17 08:30 Dose: 60 mg Eszopiclone (Lunesta) 2 mg PO BEDTIME [facility] Last Admin: 07/11/17 20:56 Dose: 2 mg Gabapentin (Neurontin) 300 mg PO BEDTIME [facility] Last Admin: 07/11/17 20:56 Dose: 300 mg Potassium Chloride (K-Dur) 20 meq PO BID [facility] Last Admin: 07/12/17 08:30 Dose: 20 meq Rosuvastatin Calcium (Crestor) 10 mg PO BEDTIME [facility] Last Admin: 07/11/17 20:56 Dose: 10 mg Sitagliptin Phosphate (Januvia) 50 mg PO DAILY [facility] Last Admin: 07/12/17 08:30 Dose: 50 mg Warfarin Sodium (Coumadin) 6 mg PO QPM [facility] Last Admin: 07/11/17 17:13 Dose: 6 mg ALLERGIES cephalexin monohydrate [From Keflex] Adverse Reaction (Verified 07/08/17 21:03) Rash NEW PRESCRIPTIONS: BACTRIM DS, TAKE ONE TABLET BY MOUTH TWICE DAILY FOR 10 DAYS SMOKING: FORMER SMOKER NONE NOW DISEASE SPECIFIC EDUCATION: PYELONEPHRITIS KLEBSIELLA PNEUMONIAE HOME MEDICATIONS NEW PRESCRIPTIONS OUTPATIENT LABS FOLLOW UP PT/INR AND COUMADIN DOSE LAB REVIEW: 07/12/17 04:30 07/12/17 04:30 07/12/17 04:30: PT 13.9 H, INR 1.37 07/12/17 04:30: Sodium 142, Potassium 4.2, Chloride 105, Carbon Dioxide 28, Anion Gap 13.2, BUN 11, Creatinine 0.76, Estimated GFR (MDRD) 74.00, BUN/ Creatinine Ratio 14.47, Glucose 106, Calcium 9.3, Total Bilirubin 0.7, AST 15, ALT 15, Alkaline Phosphatase 64, Total Protein 5.9, Albumin 3.0 L, Globulin 2.9 , Albumin/Globulin Ratio 1.03 07/12/17 04:30: WBC 10.90 H, RBC 3.70 L, Hgb 11.1 L, Hct 34.6 L, MCV 93.5, MCH 30.0, MCHC 32.1, RDW Coeff of Merari 13.7, Plt Count 233, Neutrophils % (Manual) 40.0 L, Lymphocytes % (Manual) 54.0 H, Metamyelocytes % 1.0, Reactive Lymphocytes 5.0, Anisocytosis Not present PLAN: DISCHARGE HOME TODAY RETURN TO SEE DR. HERNANDEZ IN HIS OFFICE ON 07/19/17 AT 1 P.M. YOUR PT/INR WILL BE MONITORED DURING THIS VISIT RESUME YOUR HOME MEDICATIONS PER LIST PROVIDED BY THE NURSING STAFF NEW PRESCRIPTIONS BACTRIM DS, TAKE ONE TABLET BY MOUTH TWICE DAILY FOR 10 DAYS ACTIVITY GET PLENTY OF REST AT HOME. GRADUALLY INCREASE YOUR ACTIVITY LEVEL ACCORDING TO YOUR TOLERATION DIET CONSISTENT CARBS DRINK PLENTY OF LIQUIDS TO STAY HYDRATED SUMMARY THE PATIENT IS ALERT AND ORIENTED X3. SHE CURRENTLY RESIDES AT HOME ALONE. HER FAMILY ARE SUPPORTIVE OF HER NEEDS WHEN NECESSARY. SHE HAS A ROLLING WALKER AND A SHOWER CHAIR AT HOME. SHE IS NOT REQUIRED TO USE THE ROLLING WALKER TO ASSIST WITH AMBULATION AT THIS TIME. SHE ALSO HAS A GLUCOMETER AND TESTING SUPPLIES FOR BLOOD SUGARS. MS. BRANHAM HAS EXPRESSED TO CASE MANAGEMENT THAT SHE IS HAVING DIFFICULTY "KEEPING UP" WITH HER HOMEMAKING CHORES DUE TO AGING AND MULTIPLE BACK PROBLEMS. SHE HAS BEEN REFERRED TO [facility] FOR OUTPATIENT CASEMANAGEMENT. THEY WILL ASSESS HER FOR IN HOME NEEDS SUCH HOMEMAKING ASSISTANCE. MS. BRANHAM IS AGREEABLE FOR THIS REFERRAL. HER SKIN TURGOR IS INTACT AND WITHOUT DECUBITUS ULCERS AT DISCHARGE. HYDRATION AND NUTRITIONAL STATUS ARE GOOD. THE PATIENT IS AWARE AND AGREEABLE FOR DISCHARGE HOME TODAY. WE WILL FOLLOW HER THROUGH THE OFFICE AFTER DISCHARGE. CURRENT CODE STATUS FULL CODE JUWAN NIETO APRN CARLTON HERNANDEZ M.D.
[2017-07-12 09:49] VITALS: BP 125/65; TEMP 98
[2017-07-12] MEDS: HUMULIN R SUBCUT PRN (10:54)
--- NOTE | 2017-07-13 09:40 | PN ---
DATE OF SERVICE: 07/12/17 SUBJECTIVE: The patient was hospitalized with right acute Pyelonephritis. The patient's condition has improved. She doesn't have any fever or chills. PHYSICAL EXAMINATION: HEENT: Head normocephalic, atraumatic. Eyes: Extraocular muscles are intact. Pupils are equal, round and reactive to light and accommodation. Ears: No lesions. Nose appeared normal. Throat: No exudate or erythema. NECK: Supple. No JVD, no carotid bruit. No lymphadenopathy or thyromegaly. LUNGS: Decreased breath sounds but clear to auscultation. Percussion note normal. Chest symmetrical. HEART: S1, S2, no S3. No murmurs. No cyanosis or clubbing. No ascites. Pulses: Dorsalis pedis and posterior tibial pulses +1 to +2 both sides. ABDOMEN: Acute right sided pyelonephritis. Bowel sounds active. No CVA tenderness. No mass felt. EXTREMITIES: No edema. Full range of motion of all extremities, equal. NEUROLOGIC: No focal deficit. Cranial nerves II through XII are grossly intact. No headache, no double vision or headache. SKIN: Not dry. Intact. Turgor - normal. LYMPHATIC: No palpable lymph nodes/no lymphedema. MUSCULOSKELETAL: Normal joints with no swelling. Muscle tone is normal. LABS: Repeat CT scan showed improvement. PLAN: 1. The patient will be discharged home with antibiotics The patient was seen and examined with Nurse Practitioner. TIME SPENT: More than 30 minutes. Plan and coordination of the patient's care discussed in the presence of nurse. BUD
--- NOTE | 2017-07-13 09:41 | PN ---
07/08/17: Level 5 07/09/17: Intermediate 07/10/17: Intermediate 07/11/17: Intermediate 07/12/17: D as discharge MTDD
--- NOTE | 2017-07-17 09:21 | PN ---
DATE OF SERVICE: 07/09/17 SUBJECTIVE: The patient was hospitalized with right flank pain, right pyelonephritis. The patient has been treated with IV antibiotics. Her condition is improving. She has pain which is much less than yesterday. The patient was seen and examined with the nurse practitioner. TIME SPENT: More than 30 minutes. Plan and coordination of the patient's care discussed in the presence of nurse. BUD
--- NOTE | 2017-07-30 07:11 | DS ---
DATE OF SERVICE: 07/12/17 FINAL DIAGNOSIS: 1. PYELONEPHRITIS - KLEBSIELLA PNEUMONIA 2. ASCVD 3. DYSLIPIDEMIA 4. DVT, BILATERAL, LOWER EXTREMITIES BY HISTORY 5. DIABETES TYPE 2 6. DIVERTICULOSIS (CT ABD/PELVIS, 07/08/17) 7. MODERATE HIATAL HERNIA (CT ABD/PELVIS, 07/08/17) 8. DIFFUSE DDD SPINE (PAIN MANAGEMENT, DR. COX 9. 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 OSTEOARTHRITIS/OSTEOPOROSIS 11. DEPRESSION/ANXIETY 12. LASIK EYE SURGERY 13. BACK SURGERIES TIMES 4 FUSIONS AT L3-L4, L4-L5, L5-L6 AND L6-S1 14. CERVICAL SURGERY 15. RIGHT SHOULDER PROSTHETIC 16. TOTAL RIGHT KNEE REPLACEMENT 17. HYSTERECTOMY 18. CHOLECYSTECTOMY 19. TONSILLECTOMY, 20. FORMER SMOKER DISCHARGE INSTRUCTIONS: Followup appointment: Return to see Dr. Gaming on 07/19/17 at 1 p.m. Your PT/INR will be monitored during this visit. MEDICATIONS AT DISCHARGE: Hydrocodone/Acetaminophen one tab p.o. t.i.d. BRAD Cymbalta 60 mg p.o. daily BRAD Lunesta 2 mg p.o. bedtime BRAD Neurontin 300 mg p.o. bedtime BRAD K-Dur 20 mEq p.o. b.i.d. BRAD Crestor 10 mg p.o. bedtime BRAD Januvia 50 mg p.o. daily BRAD Coumadin 6 mg p.o. q.p.m. BRAD NEW PRESCRIPTIONS: Bactrim DS take one tablet by mouth twice daily for 10 days DIET INSTRUCTIONS: Consistent carbs Drink plenty of liquids to stay hydrated ACTIVITY: Get plenty of rest at home. Gradually increase your activity level according to your toleration. SMOKING: Former smoker None now DISEASE SPECIFIC EDUCATION: Pyelonephritis Klebsiella Pneumoniae Home medications New prescriptions Outpatient Labs Follow up PT/INR and Coumadin dose HOSPITAL COURSE: This is a 76-year-old white female who presented to the emergency room being brought in by her family on Sunday. She stated that Sunday she didn't feel very well. Sunday she started having severe right flank pain, was nauseated, unable to eat, had low grade fever. She presented to the emergency room, was somewhat confused. CT scan revealed changes associated with right pyelonephritis. She had some perinephric edema. Her urine showed 2 to 3+ bacteria. She was running a fever of about 100. She was started on IV fluids at 125 cc/hr of NS. She was placed on Rocephin 1 gm IV daily along with Azactam IV. She was placed on a regular diet. Her INR was elevated initially at 3.1 so we held her Coumadin for 2 days as it continued to stay slightly elevated above 3. We continued her home medications, started her on Toradol 30 mg IV q.8hr for pain. Over the course of the past several days, her pain has significantly improved. She has remained afebrile. We discontinued her IV fluids after approximately 36 hours. For the past two days she has been eating well. Yesterday, she got up and about and was walking in the room. She reported no flank pain and this morning had no CVA tenderness on the right. Her sensitivity is sensitive to Bactrim. Will place her due to her Keflex allergy, even though she has been on Rocephin and tolerated this well, will place her on Bactrim DS p.o. b.i.d. for the next 10 days at home. She has not reported any more nausea and again has been afebrile and has been up and about. After holding her Coumadin, her INR is 1.37. We will resume her normal dose. Repeat CT scan of the abdomen was done yesterday which showed an improvement in perinephric edema on the right, seen that symptoms were resolving and there was no obstruction. She will go home today in stable condition and we will follow up with her early next week. She was instructed that if she began to experience any right flank pain again or any sort of nausea or fever that she is instructed to return sooner. Today, temperature 97.6, heart rate 73, respiratory rate 18, BP 115/67, pulse ox 95% on room air. White count improved at 10.9, hemoglobin 11.1, hematocrit 34.6. Sodium 142, potassium 4.2, BUN 11, creatinine 0.76. Will follow her closely next week. TIME SPENT: More than 60 minutes. [facility]
== END 2017-07-12 17:04 | disposition home or self-care (01) | DRG 690 ==
LOC: ED 19:23 → MEDSURG B 21:09
PROVIDERS: ADMIT Internal Medicine; ATTEND Internal Medicine
DX: N10 Acute pyelonephritis (principal); N04.9 Nephrotic syndrome with unspecified morphologic changes; B96.1 Klebsiella pneumoniae [K. pneumoniae] as the cause of diseases classified elsewhere; I25.10 Atherosclerotic heart disease of native coronary artery without angina pectoris; E86.0 Dehydration; M51.34 Other intervertebral disc degeneration, thoracic region; M43.8X4 Other specified deforming dorsopathies, thoracic region; K44.9 Diaphragmatic hernia without obstruction or gangrene; K57.30 Diverticulosis of large intestine without perforation or abscess without bleeding; M81.0 Age-related osteoporosis without current pathological fracture; E78.5 Hyperlipidemia, unspecified; E11.9 Type 2 diabetes mellitus without complications; F41.8 Other specified anxiety disorders; Z86.718 Personal history of other venous thrombosis and embolism; Z79.01 Long term (current) use of anticoagulants; Z79.84 Long term (current) use of oral hypoglycemic drugs; Z79.899 Other long term (current) drug therapy; Z98.1 Arthrodesis status; Z87.891 Personal history of nicotine dependence; Z16.11 Resistance to penicillins
CPT/HCPCS: 36415; 80053; 81001; 82962; 84436; 84443; 85007; 85025; 85610; 87040; 87086; 87186; 93005; 93010; 96361; 96374; 96375; 99284

== ENCOUNTER 2020-01-05 17:14 | Inpatient (IN) ==
[2020-01-05] MEDS ORDERED: TYLENOL PO STA (17:58)
[2020-01-05] MEDS ORDERED: SODIUM CHLORIDE 500 ML IV STA (17:58)
[2020-01-05 18:10] LABS: BILIRUBIN,URINE Negative (NEGATIVE); CLARITY,URINE Cloudy (CLEAR); COLOR,URINE Yellow (YELLOW); GLUCOSE, URINE (UA) Trace (NEGATIVE); KETONES,URINE 2+ (NEGATIVE); LEUKOCYTE ESTERASE ,URINE 3+ (NEGATIVE); NITRITE,URINE Positive (NEGATIVE); PH,URINE 6.5 (5-9); PROTEIN,URINE 2+ (NEGATIVE); URINE, BLOOD 1+ (NEGATIVE)
[2020-01-05 18:12] LABS: HEMATOCRIT 41.1 % (37.0-47.0); HEMOGLOBIN 13.9 g/dl (12.0-16.0); MEAN CORPUSCULAR HGB CONC 33.8 (31.8-35.4); MEAN CORPUSCULAR VOLUME 88.6 fl (81.0-99.0); PLATELET COUNT 237 10^3/uL (140-440); RDW COEFFICIENT OF VARIATION 14.2 % (11.6-14.8); RED BLOOD COUNT 4.64 10^6/ul (4.20-5.40); WHITE BLOOD COUNT 9.58 K/ul (4.6-10.2)
[2020-01-05 18:13] LABS: AMORPHOUS SEDIMENT,UR 2+ (NOT PRESENT); BACTERIA,URINE 3+ (NOT PRESENT); SQUAMOUS EPITHELIAL CELL,UR NOT PRESENT (0-5); URINE WBC, MICROSCOPIC TNTC (0-2)
[2020-01-05 18:22] LABS: ANISOCYTOSIS NOT PRESENT (NOT PRESENT)
[2020-01-05 18:23] LABS: ALANINE AMINOTRANSFERASE 15.6 U/L (0-35); ALBUMIN 3.84 g/dL (3.5-5.0); ALKALINE PHOSPHATASE 72.3 U/L (53-141); ASPARTATE AMINO TRANSFERASE 37.6 U/L (14-36); BILIRUBIN,TOTAL 0.71 mg/dL (0.2-1.3); BLOOD UREA NITROGEN 8.4 mg/dL (7-17); CALCIUM 9.74 mg/dL (8.4-10.2); CARBON DIOXIDE 33.2 mmol/L (22-30.0); CHLORIDE 92.8 mmol/L (98-107); CREATININE 0.62 mg/dL (0.60-1.30); GLUCOSE 158.8 mg/dL (74-106); POTASSIUM 3.12 mmol/L (3.5-5.1); SODIUM 132.1 mmol/L (134.5-145)
--- NOTE | 2020-01-05 18:23 | ED.PDOC ---
General <ANTONIETTA MCCANN MD - Last Filed: 01/05/20 18:33> ED Provider: Dr. ANTONIETTA MCCANN MD Chief Complaint: Urinary Problem Stated Complaint: urinary frequency and mild SOB Time Seen by Physician: 17:20 Mode of Arrival: Wheelchair Information Source: Patient Exam Limitations: No limitations Primary Care Provider: CARLTON GARCIA Nursing and Triage Documentation Reviewed and Agree: Yes Does patient meet sepsis criteria?: No System Inflammatory Response Syndrome: Not Applicable Sepsis Protocol: For patient's 13 years and over: Temp is 96.8 and below OR 101 and greater Pulse >90 BPM Resp >20/minute Acutely Altered Mental Status Are patient's symptoms suggestive of a new infection, such as: -Pneumonia -Skin, Soft Tissue -Endocarditis -UTI -Bone, Joint Infection -Implantable Device -Acute Abdominal Infection -Wound Infection -Meningitis -Blood Stream Catheter Infection -Unknown Respiratory Complaint Exam <ANTONIETTA MCCANN MD - Last Filed: 01/05/20 18:33> Respiratory Complaint/Exam Onset/Duration: Urinary sxs today. SOB x 1 week Symptoms Are: Still present Initial Severity: Mild Current Severity: Mild Alleviating: Reports None Associated Signs and Symptoms: Reports Dyspnea and Fever; Denies Rapid breathing, Chills, Chest pain, Pleuritic chest pain, Wheezing, Hemoptysis, Dizziness, Calf pain, Calf swelling, Edema, URI, Nasal congestion, Hoarseness, Sinus discomfort, Vomiting, Sore throat, Weight loss, Decreased oral intake, Increased thirst, Increased appetite and Increased urination Home Oxygen Use: No Current Antibiotic Use: No Respiratory Distress: Mild Dysphagia Present: No Stridor Present: No JVD Present: No Accessory Muscle Use: No Retractions: Not Present Differential Diagnoses: CHF, COPD Exacerbation, Bronchitis, URI and Influenza Review of Systems <ANTONIETTA MCCANN MD - Last Filed: 01/05/20 18:33> Review Of Systems Constitutional: Reports Fever Eyes: Reports No symptoms Ears, Nose, Mouth, Throat: Reports No symptoms Respiratory: Reports Short of air Cardiac: Reports No symptoms GI: Reports No symptoms : Reports Frequency Musculoskeletal: Reports No symptoms Skin: Reports No symptoms Neurological: Reports No symptoms Endocrine: Reports No symptoms Hematologic/Lymphatic: Reports No symptoms All Other Systems: Reviewed and Negative PFSH <ANTONIETTA MCCANN MD - Last Filed: 08/31/20 18:33> Social History Smoking and tobacco status: Never smoker Female Reproductive History Menstrual Hx Hysterectomy: Yes Hx Tubal Ligation: No Physical Exam <ANTONIETTA MCCANN MD - Last Filed: 01/05/20 18:33> Physical Exam Appearance: Reports No pain distress Ill-appearing: None Pain Distress: None Eyes: Reports TONO, EOMI and Conjunctiva clear ENT: Reports Ears normal, Nose normal and Oropharynx normal Neck: Supple Respiratory: Reports Airway patent, Breath sounds clear and Rhonchi Cardiovascular: Reports RRR, Pulses normal, No rub and No murmur GI/: Reports Soft, Nontender, No masses, Bowel sounds normal and No Organomegaly Musculoskeletal: Reports Normal strength, ROM intact, No edema and No calf tenderness Skin: Reports Warm, Dry and Normal color Neurological: Reports Sensation intact, Motor intact, Reflexes intact and Cranial nerves intact Psychiatric: Reports Affect appropriate and Mood appropriate Re-Evaluation <ANTONIETTA MCCANN MD - Last Filed: 01/05/20 18:33> Re-Evaluation Time of Re-Evaluation: 18:32 Status: Improved Vital Signs Stable: Yes Pain Level: 1 Appearance: NAD Lungs: Other (minimal rhonchi) Skin: Warm and Dry Neuro: Alert and Oriented X3 CV: RRR <ANGÉLICA MOSHER MD - Last Filed: 01/05/20 19:43> Case Discussed Physician Notified: dr [email or web address] Time of Notification: 19:42 <ANGÉLICA MOSHER MD - Last Filed: 01/05/20 19:43> Critical Care Note Total Time (mins): 30 Course <ANTONIETTA MCCANN MD - Last Filed: 01/05/20 18:33> Course Hematology/Chemistry: 01/05/20 17:50 01/05/20 17:50 Orders, Labs, Meds: Lab Review 01/05/20 01/05/20 01/05/20 17:50 17:50 18:05 WBC 9.58 RBC 4.64 Hgb 13.9 Hct 41.1 MCV 88.6 MCH 30.0 MCHC 33.8 RDW Coeff of [place] 14.2 Plt Count 237 Neutrophils % (Manual) 44.0 Lymphocytes % (Manual) 45.0 Monocytes % (Manual) 8.0 Reactive Lymphocytes 3.0 Anisocytosis Not present Sodium 132.1 L Potassium 3.12 L Chloride 92.8 L Carbon Dioxide 33.2 H Anion Gap 9.22 BUN 8.4 Creatinine 0.62 Estimated GFR (MDRD) 92.00 BUN/Creatinine Ratio 13.54 Glucose 158.8 H Calcium 9.74 Total Bilirubin 0.71 AST 37.6 H ALT 15.6 Alkaline Phosphatase 72.3 Troponin I < 0.012 NT-Pro-B Natriuret Pep 196.000 Total Protein 7.10 Albumin 3.84 Globulin 3.26 Albumin/Globulin Ratio 1.17 Urine Color Yellow Urine Clarity Cloudy Urine pH 6.5 Ur Specific [place] 1.025 Urine Protein 2+ H Urine Glucose (UA) Trace H Urine Ketones 2+ H Urine Blood 1+ H Urine Nitrite Positive H Urine Bilirubin Negative Urine Urobilinogen 1.0 H Ur Leukocyte Esterase 3+ H Urine Microscopic RBC 5-10 Urine Microscopic WBC Tntc Ur Squamous Epith Cells Not present Amorphous Sediment 2+ Urine Bacteria 3+ Influ A Molecular Assay Influ B Molecular Assay 01/05/20 18:30 WBC RBC Hgb Hct MCV MCH MCHC RDW Coeff of [place] Plt Count Neutrophils % (Manual) Lymphocytes % (Manual) Monocytes % (Manual) Reactive Lymphocytes Anisocytosis Sodium Potassium Chloride Carbon Dioxide Anion Gap BUN Creatinine Estimated GFR (MDRD) BUN/Creatinine Ratio Glucose Calcium Total Bilirubin AST ALT Alkaline Phosphatase Troponin I NT-Pro-B Natriuret Pep Total Protein Albumin Globulin Albumin/Globulin Ratio Urine Color Urine Clarity Urine pH Ur Specific [place] Urine Protein Urine Glucose (UA) Urine Ketones Urine Blood Urine Nitrite Urine Bilirubin Urine Urobilinogen Ur Leukocyte Esterase Urine Microscopic RBC Urine Microscopic WBC Ur Squamous Epith Cells Amorphous Sediment Urine Bacteria Influ A Molecular Assay Negative by naat Influ B Molecular Assay Negative by naat Orders Category Date Time Status ABG DRAW REQUEST Stat CARDIO 01/05/20 19:18 Ordered EKG-(ED ONLY) Stat CARDIO 01/05/20 17:58 Completed EKG-(ED ONLY) Stat CARDIO 01/05/20 19:18 Ordered ED IV/MEDIPORT/POWERPORT .ONCE EMERGENCY 01/05/20 17:58 Active ABG Stat LAB 01/05/20 19:18 Ordered BLOOD CULTURE (ED ONLY) Stat LAB 01/05/20 18:35 Received CBC W/ AUTO DIFF Stat LAB 01/05/20 17:50 Completed COMPREHENSIVE METABOLIC PANEL Stat LAB 01/05/20 17:50 Completed FLU A/B MOLECULAR Stat LAB 01/05/20 18:30 Completed MANUAL DIFFERENTIAL Stat LAB 01/05/20 17:50 Completed MOLECULAR GROUP A STREP Stat LAB 01/05/20 18:30 Completed NT-PROBNP Stat LAB 01/05/20 17:50 Completed TROPONIN I Stat LAB 01/05/20 17:50 Completed URINALYSIS C & S IF INDICATED Stat LAB 01/05/20 18:05 Completed URINE CULTURE Stat LAB 01/05/20 18:05 Received 0.9 % Sodium Chloride [Saline Flush] MEDS 01/05/20 17:58 Active 1 syr IVF PRN PRN Acetaminophen [Tylenol] MEDS 01/05/20 17:58 Discontinued 650 mg PO ONCE STA Levofloxacin/D5w [Levaquin 500 mg/100 ml D5w] MEDS 01/05/20 19:10 Active 500 mg in 100 ml IV ONCE Potassium Chloride [K-Dur] MEDS 01/05/20 19:08 Discontinued 20 meq PO ONCE STA Sodium Chloride 0.9% [Sodium Chloride] 500 ml MEDS 01/05/20 17:[address] CHEST W/O CONTRAST Stat RADS 01/05/20 17:58 Completed Medications Generic Name Dose Route Start Last Admin Trade Name Freq PRN Reason Stop Dose Admin Levofloxacin/Dextrose 500 mg in 100 mls @ 100 mls/hr 01/05/20 19:10 Levaquin 500 Mg/100 Ml D5w IV 01/05/20 20:09 ONCE STA Sodium Chloride 1 syr 01/05/20 17:58 01/05/20 18:21 Saline Flush IVF 1 syr PRN PRN Administration To flush IV Discontinued Medications Generic Name Dose Route Start Last Admin Trade Name Freq PRN Reason Stop Dose Admin Acetaminophen 650 mg 01/05/20 17:58 01/05/20 18:21 Tylenol PO 01/05/20 17:59 650 mg ONCE STA Administration Sodium Chloride 500 mls @ 500 mls/hr 01/05/20 17:58 01/05/20 18:21 Sodium Chloride IV 01/05/20 18:57 500 mls/hr BOLUS STA Administration Potassium Chloride 20 meq 01/05/20 19:08 K-Dur PO 01/05/20 19:09 ONCE STA Vital Signs: Temp Pulse Resp BP Pulse Ox 01/05/20 17:15 100.3 F H 104 H 20 163/84 H 89 L <ANGÉLICA MOSHER MD - Last Filed: 01/05/20 19:43> Course Orders, Labs, Meds: Lab Review 01/05/20 01/05/20 01/05/20 17:50 17:50 18:05 WBC 9.58 RBC 4.64 Hgb 13.9 Hct 41.1 MCV 88.6 MCH 30.0 MCHC 33.8 RDW Coeff of [place] 14.2 Plt Count 237 Neutrophils % (Manual) 44.0 Lymphocytes % (Manual) 45.0 Monocytes % (Manual) 8.0 Reactive Lymphocytes 3.0 Anisocytosis Not present Sodium 132.1 L Potassium 3.12 L Chloride 92.8 L Carbon Dioxide 33.2 H Anion Gap 9.22 BUN 8.4 Creatinine 0.62 Estimated GFR (MDRD) 92.00 BUN/Creatinine Ratio 13.54 Glucose 158.8 H Calcium 9.74 Total Bilirubin 0.71 AST 37.6 H ALT 15.6 Alkaline Phosphatase 72.3 Troponin I < 0.012 NT-Pro-B Natriuret Pep 196.000 Total Protein 7.10 Albumin 3.84 Globulin 3.26 Albumin/Globulin Ratio 1.17 Urine Color Yellow Urine Clarity Cloudy Urine pH 6.5 Ur Specific [place] 1.025 Urine Protein 2+ H Urine Glucose (UA) Trace H Urine Ketones 2+ H Urine Blood 1+ H Urine Nitrite Positive H Urine Bilirubin Negative Urine Urobilinogen 1.0 H Ur Leukocyte Esterase 3+ H Urine Microscopic RBC 5-10 Urine Microscopic WBC Tntc Ur Squamous Epith Cells Not present Amorphous Sediment 2+ Urine Bacteria 3+ Influ A Molecular Assay Influ B Molecular Assay 01/05/20 18:30 WBC RBC Hgb Hct MCV MCH MCHC RDW Coeff of [place] Plt Count Neutrophils % (Manual) Lymphocytes % (Manual) Monocytes % (Manual) Reactive Lymphocytes Anisocytosis Sodium Potassium Chloride Carbon Dioxide Anion Gap BUN Creatinine Estimated GFR (MDRD) BUN/Creatinine Ratio Glucose Calcium Total Bilirubin AST ALT Alkaline Phosphatase Troponin I NT-Pro-B Natriuret Pep Total Protein Albumin Globulin Albumin/Globulin Ratio Urine Color Urine Clarity Urine pH Ur Specific [place] Urine Protein Urine Glucose (UA) Urine Ketones Urine Blood Urine Nitrite Urine Bilirubin Urine Urobilinogen Ur Leukocyte Esterase Urine Microscopic RBC Urine Microscopic WBC Ur Squamous Epith Cells Amorphous Sediment Urine Bacteria Influ A Molecular Assay Negative by naat Influ B Molecular Assay Negative by naat Orders Category Date Time Status ABG DRAW REQUEST Stat CARDIO 01/05/20 19:18 Ordered EKG-(ED ONLY) Stat CARDIO 01/05/20 17:58 Completed EKG-(ED ONLY) Stat CARDIO 01/05/20 19:18 Ordered ED IV/MEDIPORT/POWERPORT .ONCE EMERGENCY 01/05/20 17:58 Active ABG Stat LAB 01/05/20 19:18 Ordered BLOOD CULTURE (ED ONLY) Stat LAB 01/05/20 18:35 Received CBC W/ AUTO DIFF Stat LAB 01/05/20 17:50 Completed COMPREHENSIVE METABOLIC PANEL Stat LAB 01/05/20 17:50 Completed FLU A/B MOLECULAR Stat LAB 01/05/20 18:30 Completed MANUAL DIFFERENTIAL Stat LAB 01/05/20 17:50 Completed MOLECULAR GROUP A STREP Stat LAB 01/05/20 18:30 Completed NT-PROBNP Stat LAB 01/05/20 17:50 Completed TROPONIN I Stat LAB 01/05/20 17:50 Completed URINALYSIS C & S IF INDICATED Stat LAB 01/05/20 18:05 Completed URINE CULTURE Stat LAB 01/05/20 18:05 Received 0.9 % Sodium Chloride [Saline Flush] MEDS 01/05/20 17:58 Active 1 syr IVF PRN PRN Acetaminophen [Tylenol] MEDS 01/05/20 17:58 Discontinued 650 mg PO ONCE STA Levofloxacin/D5w [Levaquin 500 mg/100 ml D5w] MEDS 01/05/20 19:10 Active 500 mg in 100 ml IV ONCE Potassium Chloride [K-Dur] MEDS 01/05/20 19:08 Discontinued 20 meq PO ONCE STA Sodium Chloride 0.9% [Sodium Chloride] 500 ml MEDS 01/05/20 17:[address] CHEST W/O CONTRAST Stat RADS 01/05/20 17:58 Completed Medications Generic Name Dose Route Start Last Admin Trade Name Freq PRN Reason Stop Dose Admin Levofloxacin/Dextrose 500 mg in 100 mls @ 100 mls/hr 01/05/20 19:10 Levaquin 500 Mg/100 Ml D5w IV 01/05/20 20:09 ONCE STA Sodium Chloride 1 syr 01/05/20 17:58 01/05/20 18:21 Saline Flush IVF 1 syr PRN PRN Administration To flush IV Discontinued Medications Generic Name Dose Route Start Last Admin Trade Name [place] PRN Reason Stop Dose Admin Acetaminophen 650 mg 01/05/20 17:58 01/05/20 18:21 Tylenol PO 01/05/20 17:59 650 mg ONCE STA Administration Sodium Chloride 500 mls @ 500 mls/hr 01/05/20 17:58 01/05/20 18:21 Sodium Chloride IV 01/05/20 18:57 500 mls/hr BOLUS STA Administration Potassium Chloride 20 meq 01/05/20 19:08 K-Dur PO 01/05/20 19:09 ONCE STA Vital Signs: Temp Pulse Resp BP Pulse Ox 01/05/20 17:15 100.3 F H 104 H 20 163/84 H 89 L Discharge Plan Discharge Patient Disposition: ADMITTED INPATIENT Discharge Problem: Pneumonia, Urinary tract infectious disease Prescriptions: No Action warfarin [Coumadin] 4 MG tablet 6 mg PO DAILY RF: 0 gabapentin 300 MG capsule 300 mg PO BEDTIME RF: 0 rosuvastatin [Crestor] 10 MG tablet 10 mg PO BEDTIME RF: 0 duloxetine [Cymbalta] 60 MG capsule,delayed release(DR/EC) 60 mg PO DAILY RF: 0 eszopiclone [Lunesta] 2 MG tablet 2 mg PO BEDTIME RF: 0 Januvia 100 MG tablet 50 mg PO DAILY RF: 0 potassium chloride [Klor-Con M20] 20 MEQ tablet,ER particles/crystals 20 meq PO BID RF: 0 ED Provider: ANTONIETTA MCCANN Condition: Good
[2020-01-05 18:38] LABS: TROPONIN I < 0.012 ng/ml (0.0000-0.120)
--- NOTE | 2020-01-05 18:38 | CT ---
EXAM: CT chest without contrast HISTORY: Short of breath and fever COMPARISON: None. TECHNIQUE: Axial CT imaging of the chest was performed without contrast. Sagittal and coronal re-fo rmations were done to better evaluate anatomy. FINDINGS: Increased patchy opacities are present within the right middle lobe, lingula and both lung bases. There is no pleural effusion. In the right lung base, a 0.7 cm rounded density is present. There is mild atherosclerotic calcification is seen in the large vessels of the mediastinum. Cardiac size is within normal limits. There is no pericardial effusion. There is no mediastinal lymphadenopathy. A remote healed sternal fracture is present. There are mild degenerative changes seen in the mid tho racic spine. A small hiatal hernia is present. Limited visualization of the upper abdomen reveals cholecystectomy clips. IMPRESSION: Bilateral mid to lower lung pneumonia. A 0.7 cm rounded density is present in the right lung base which may represent a nodule. A follow-up CT chest in 3 months is recommended to assess stability.
[2020-01-05 19:07] LABS: MOLECULAR FLU A NEGATIVE BY NAAT (NEGATIVE); MOLECULAR FLU B NEGATIVE BY NAAT (NEGATIVE)
[2020-01-05] MEDS ORDERED: K-DUR PO STA (19:08)
[2020-01-05] MEDS ORDERED: LEVAQUIN 500 MG/100 ML D5W 500 MG/100 ML BAG IV STA (19:10)
[2020-01-05 19:56] LABS: ABG BASE EXCESS 5 (-2.0-2.0); ABG HCO3 28.2 (22.0-26.0); ABG PCO2 34.8 mmHg (35-45); ABG PH 7.516 (7.35-7.45); ABG TCO2 29 (22.0-28.0)
[2020-01-05] MEDS: SODIUM CHLORIDE 1,000 ML IV SCH (20:52)
[2020-01-05] MEDS ORDERED: AZACTAM ONE (20:54)
[2020-01-05] MEDS: NEURONTIN PO SCH (20:58)
[2020-01-05] MEDS: CRESTOR PO SCH (20:58)
[2020-01-05] MEDS ORDERED: COUMADIN PO SCH (21:00)
[2020-01-05] MEDS ORDERED: DOXY-100 100 MG in SODIUM CHLORIDE 100 ML IV SCH (21:00)
[2020-01-05] MEDS ORDERED: K-DUR PO SCH (21:00)
[2020-01-05] MEDS: AZACTAM 1 GM in SODIUM CHLORIDE 50 ML IV SCH (21:02)
[2020-01-05] MEDS: ESZOPICLONE 2 MG PO SCH (21:04)
[2020-01-05 21:11] VITALS: BMI 23.4
[2020-01-06] MEDS ORDERED: AZACTAM ONE (05:02)
[2020-01-06] MEDS: ZOFRAN 4 MG/2 ML IVP PRN ×2 (05:04→17:14)
[2020-01-06 05:05] LABS: BASOPHILS % (AUTO) 0.1 % (0.0-3.0); EOSINOPHILS % (AUTO) 0.1 % (0.0-7.0); HEMATOCRIT 37.6 % (37.0-47.0); HEMOGLOBIN 12.5 g/dl (12.0-16.0); IMMATURE GRANULOCYTE % (AUTO) 0.2 % (0.0-5.0); LYMPHOCYTES # (AUTO) 4.9 K/uL (0.60-3.4); LYMPHOCYTES % (AUTO) 56.2 (10.0-50.0); MEAN CORPUSCULAR HEMOGLOBIN 29.8 pg (27.0-31.0); MEAN CORPUSCULAR HGB CONC 33.2 (31.8-35.4); MEAN CORPUSCULAR VOLUME 89.5 fl (81.0-99.0); MONOCYTES # (AUTO) 0.6 K/uL (0.4-2.0); MONOCYTES % (AUTO) 6.8 (0-10); NEUTROPHILS # (AUTO) 3.2 K/ul (2.0-6.9); NEUTROPHILS % (AUTO) 36.6 % (42.2-75.2); PLATELET COUNT 217 10^3/uL (140-440); RDW COEFFICIENT OF VARIATION 14.1 % (11.6-14.8); WHITE BLOOD COUNT 8.68 K/ul (4.6-10.2)
[2020-01-06] MEDS: AZACTAM 1 GM in SODIUM CHLORIDE 50 ML IV SCH (05:05)
[2020-01-06 05:17] LABS: PROTHROMBIN TIME 13.5 SEC (9.3-11.0)
[2020-01-06 05:20] LABS: ALANINE AMINOTRANSFERASE 11.5 U/L (0-35); ALBUMIN 3.09 g/dL (3.5-5.0); ALKALINE PHOSPHATASE 57.2 U/L (53-141); ASPARTATE AMINO TRANSFERASE 31.9 U/L (14-36); BILIRUBIN,TOTAL 0.56 mg/dL (0.2-1.3); BLOOD UREA NITROGEN 7.2 mg/dL (7-17); CALCIUM 9.21 mg/dL (8.4-10.2); CARBON DIOXIDE 31.4 mmol/L (22-30.0); CHLORIDE 100.4 mmol/L (98-107); CREATININE 0.55 mg/dL (0.60-1.30); POTASSIUM 4.23 mmol/L (3.5-5.1); SODIUM 133.7 mmol/L (134.5-145); TOTAL PROTEIN 5.89 g/dL (6.3-8.2)
[2020-01-06] MEDS: TYLENOL PO PRN ×2 (06:08→21:30)
[2020-01-06] MEDS: ROCEPHIN 1 GM/50 ML D5W 1 GM/50 ML BAG IV SCH (08:42)
[2020-01-06] MEDS: JANUVIA PO SCH (08:43)
[2020-01-06] MEDS: K-DUR PO SCH ×2 (08:43→17:14)
[2020-01-06] MEDS: CYMBALTA PO SCH (08:43)
[2020-01-06] MEDS: SOLU-CORTEF 100 MG IVP SCH (08:43)
[2020-01-06] MEDS: VENTOLIN HFA (PER PUFF-WITH SPACER) IH SCH ×3 (08:54→19:33)
[2020-01-06] MEDS ORDERED: LOVENOX SUBCUT SCH (09:00)
--- NOTE | 2020-01-06 09:21 | PCM.PROG ---
Attending Provider: ATTENDING PROVIDER: Dr. CARLTON HERNANDEZ This patient is seen with Brynn Sepulveda, Nurse Practitioner. DATE OF SERVICE: 01/06/20 SUBJECTIVE: This 79 year old /WHITE F was hospitalized 01/05/20. The patient is resting comfortably. Still with fever. Complaining of some nausea. Bouts of forgetfulness. REVIEW OF SYSTEMS: CONSTITUTIONAL: No night sweats. No fatigue, malaise, lethargy. Fever. Weakness. HEENT: Eyes: No visual changes. No eye pain. No eye discharge. ENT: No runny nose. No epistaxis. No sinus pain. No odynophagia. No congestion. RESPIRATORY: No cough, no congestion. No hemoptysis. No shortness of breath. CARDIOVASCULAR: No angina symptoms. No CHF symptoms. No atypical chest pain for CAD. No palpitations. No orthopnea.. GASTROINTESTINAL: No abdominal pain. No nausea or vomiting. No diarrhea or constipation. No hematemesis. No hematochezia. GENITOURINARY: No urgency. No frequency. No dysuria. No hematuria. No obstructive symptoms. No discharge. No pain. No significant abnormal bleeding. MUSCULOSKELETAL: No musculoskeletal pain; no joint swelling. Fall. NEUROLOGICAL: Awake, alert, bouts of confusion. . No headache. No neck pain. No syncope. No seizures. No dizziness. PSYCHIATRIC: Not anxious. No depression. No suicidal thoughts. No homicidal thoughts. SKIN: No rash. No lesions. No wounds. ENDOCRINE: No unexplained weight loss. No weight gain. HEMATOLOGIC/LYMPHATIC: No anemia. No purpura. No petechiae. No prolonged or exce ssive bleeding. No palpable lymph nodes. PHYSICAL EXAMINATION: GENERAL: The patient is awake, alert, lying in bed in no distress. VITAL SIGNS: Temperature 100.3 F, Pulse 89, Respiratory Rate 20, BP 149/79, Pulse Ox 95% HEENT: Head normocephalic, atraumatic. Eyes: Extraocular muscles are intact. Pupils are equal, round and reactive to light and accommodation. Ears: No lesions. Nose appeared normal. Throat: No exudate or erythema. NECK: Supple. No JVD, no carotid bruit. No lymphadenopathy or thyromegaly. LUNGS: Diminished breath sounds. Bilateral rhonchi. Clear to auscultation. Percussion note normal. Chest symmetrical. HEART: S1, S2, no S3. No murmurs. No cyanosis or clubbing. No ascites. Pulses: Dorsalis pedis and posterior tibial pulses +1 to +2 both sides. ABDOMEN: Soft. Non-tender. Bowel sounds active. No CVA tenderness. No mass felt. EXTREMITIES: No edema. Full range of motion of all extremities, equal. NEUROLOGIC: No focal deficit. Cranial nerves II through XII are grossly intact. No headache, no double vision or headache. SKIN: Not dry. Intact. Turgor-normal. LYMPHATIC: No palpable lymph nodes/no lymphedema. MUSCULOSKELETAL: Normal joints with no swelling. Muscle tone is normal. LAB REVIEW: 01/06/20 05:00 01/06/20 05:00 01/06/20 05:00: PT 13.5 H, INR 1.41 01/06/20 05:00: Sodium 133.7 L, Potassium 4.23, Chloride 100.4, Carbon Dioxide 31.4 H, Anion Gap 6.13, BUN 7.2, Creatinine 0.55 L, Estimated GFR (MDRD) 106.00, BUN/Creatinine Ratio 13.09, Glucose 121.0 H, Calcium 9.21, Total Bilirubin 0.56, AST 31.9, ALT 11.5, Alkaline Phosphatase 57.2, Total Protein 5.89 L, Albumin 3.09 L, Globulin 2.80, Albumin/Globulin Ratio 1.10 01/06/20 05:00: WBC 8.68, RBC 4.20, Hgb 12.5, Hct 37.6, MCV 89.5, MCH 29.8, MCHC 33.2, RDW Coeff of Merari 14.1, Plt Count 217, Immature Gran % (Auto) 0.2, Neut % (Auto) 36.6 L, Lymph % (Auto) 56.2 H, [place] % (Auto) 6.8, Eos % (Auto) 0.1, Baso % (Auto) 0.1, Neut # (Auto) 3.2, Lymph # (Auto) 4.9 H, [place] # (Auto) 0.6, Eos # (Auto) 0.0, Baso # (Auto) 0.0, Immature Gran # (Auto) 0.0 01/05/20 20:30: SARS-CoV-2 RNA (RT-PCR) 01/05/20 19:18: Puncture Site Rrad, O2 Saturation 94.0 L, ABG pH 7.516 H*, ABG pCO2 34.8 L, ABG pO2 64.0 L, ABG HCO3 28.2 H, ABG Total CO2 29 H, ABG Base Excess 5 H, Eugenio Test +, FiO2 % 21.0 01/05/20 18:30: Influ A Molecular Assay Negative by naat, Influ B Molecular Assay Negative by naat 01/05/20 18:05: Urine Color Yellow, Urine Clarity Cloudy, Urine pH 6.5, Ur Specific [place] 1.025, Urine Protein 2+ H, Urine Glucose (UA) Trace H, Urine Ketones 2+ H, Urine Blood 1+ H, Urine Nitrite Positive H, Urine Bilirubin Negative, Urine Urobilinogen 1.0 H, Ur Leukocyte Esterase 3+ H, Urine Microscopic RBC 5-10, Urine Microscopic WBC Tntc, Ur Squamous Epith Cells Not present, Amorphous Sediment 2+, Urine Bacteria 3+ 01/05/20 17:50: PT 12.0 H, INR 1.23 01/05/20 17:50: Sodium 132.1 L, Potassium 3.12 L, Chloride 92.8 L, Carbon Dioxide 33.2 H, Anion Gap 9.22, BUN 8.4, Creatinine 0.62, Estimated GFR (MDRD) 92.00, BUN/Creatinine Ratio 13.54, Glucose 158.8 H, Calcium 9.74, Total Bilirubin 0.71, AST 37.6 H, ALT 15.6, Alkaline Phosphatase 72.3, Troponin I < 0.012, NT-Pro-B Natriuret Pep 196.000, Total Protein 7.10, Albumin 3.84, Globulin 3.26, Albumin/Globulin Ratio 1.17 01/05/20 17:50: WBC 9.58, RBC 4.64, Hgb 13.9, Hct 41.1, MCV 88.6, MCH 30.0, MCHC 33.8, RDW Coeff of Merari 14.2, Plt Count 237, Neutrophils % (Manual) 44.0, Lymphocytes % (Manual) 45.0, Monocytes % (Manual) 8.0, Reactive Lymphocytes 3.0, Anisocytosis Not present ASSESSMENT: Please see below. 1. Bilateral pneumonia 2. Right pulmonary nodule 3. UTI culture pending 4. Shortness of breath 5. Atrial fibrillation PLAN: 1. Rocephin 1 gram IV daily 2. Zithromax 500mg IV times three 3. Solu-Cortef 100mg IV Q 12 hours 4. Accu checks TID 5. Sliding scale 6. Discontinue Lovenox 7. Daily INR 8. Extra 3mg of Coumadin for total of 9mg 9. Albuterol inhaler TID two puffs 10.Discontinue Levaquin, Doxycycline and Azactam Plan and coordination of the patient's care discussed in the presence of Supervisor [employer] and nurse. SCRIBED BY: Corby ORTIZ scribed while in presence of service performed by Dr. Hernandez/Brynn Sepulveda APRN on 01/06/20 ([id number])
[2020-01-06] MEDS: ZITHROMAX 500 MG in SODIUM CHLORIDE 250 ML IV SCH (10:56)
[2020-01-06] MEDS ORDERED: AZACTAM 1 GM in SODIUM CHLORIDE 50 ML IV SCH (13:00)
[2020-01-06] MEDS ORDERED: COUMADIN PO ONE (17:00)
[2020-01-06] MEDS: COUMADIN PO SCH (17:14)
[2020-01-06] MEDS: SODIUM CHLORIDE 1,000 ML IV SCH (17:15)
[2020-01-06] MEDS ORDERED: LEVAQUIN 750 MG/150 ML D5W 750 MG/150 ML BAG IV SCH (21:00)
[2020-01-06] MEDS: CRESTOR PO SCH (21:30)
[2020-01-06] MEDS: NEURONTIN PO SCH (21:30)
[2020-01-06] MEDS: ESZOPICLONE 2 MG PO SCH (21:30)
[2020-01-07] MEDS: SOLU-CORTEF 100 MG IVP SCH ×2 (01:03→09:00)
[2020-01-07] MEDS: VENTOLIN HFA (PER PUFF-WITH SPACER) IH SCH ×3 (05:01→20:00)
[2020-01-07 05:47] LABS: HEMATOCRIT 37.4 % (37.0-47.0); HEMOGLOBIN 12.1 g/dl (12.0-16.0); IMMATURE GRANULOCYTE % (AUTO) 0.3 % (0.0-5.0); LYMPHOCYTES # (AUTO) 4.9 K/uL (0.60-3.4); LYMPHOCYTES % (AUTO) 53.8 (10.0-50.0); MEAN CORPUSCULAR HEMOGLOBIN 29.4 pg (27.0-31.0); MEAN CORPUSCULAR HGB CONC 32.4 (31.8-35.4); MONOCYTES # (AUTO) 0.3 K/uL (0.4-2.0); MONOCYTES % (AUTO) 2.7 (0-10); NEUTROPHILS % (AUTO) 43.2 % (42.2-75.2); PLATELET COUNT 250 10^3/uL (140-440); RDW COEFFICIENT OF VARIATION 14.2 % (11.6-14.8); RED BLOOD COUNT 4.11 10^6/ul (4.20-5.40); WHITE BLOOD COUNT 9.18 K/ul (4.6-10.2)
[2020-01-07 05:59] LABS: ALANINE AMINOTRANSFERASE 13.3 U/L (0-35); ALBUMIN 3.21 g/dL (3.5-5.0); ASPARTATE AMINO TRANSFERASE 32.4 U/L (14-36); BILIRUBIN,TOTAL 0.36 mg/dL (0.2-1.3); BLOOD UREA NITROGEN 11.5 mg/dL (7-17); CALCIUM 9.45 mg/dL (8.4-10.2); CARBON DIOXIDE 30.2 mmol/L (22-30.0); CHLORIDE 102.9 mmol/L (98-107); CREATININE 0.6 mg/dL (0.60-1.30); GLUCOSE 152.3 mg/dL (74-106); POTASSIUM 4.5 mmol/L (3.5-5.1); SODIUM 135.7 mmol/L (134.5-145); TOTAL PROTEIN 6.12 g/dL (6.3-8.2)
[2020-01-07] MEDS: ROCEPHIN 1 GM/50 ML D5W 1 GM/50 ML BAG IV SCH (09:00)
[2020-01-07] MEDS: CYMBALTA PO SCH (09:00)
[2020-01-07] MEDS: JANUVIA PO SCH (09:01)
[2020-01-07] MEDS: K-DUR PO SCH ×2 (09:01→16:47)
--- NOTE | 2020-01-07 09:04 | HP ---
DATE OF SERVICE: 01/05/20 REASON FOR HOSPITALIZATION/HISTORY OF PRESENT ILLNESS: This is an 79-year-old white female who presented to the emergency room with fever, mild shortness of breath, urinary symptoms like dysuria, urgency. 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 Villafana, no longer sees oncology History of glaucoma Mitral valve prolapse PAST SURGICAL HISTORY: Pain pump stimulator insertion by Dr. Martel of 03/25 C-spine surgery by Dr. Barillas Glaucoma surgery on the left eye Right shoulder surgery Right total knee replacement REVIEW OF SYSTEMS: CONSTITUTIONAL: Fever. No night sweats. No fatigue, malaise, lethargy. No chills. HEENT: Eyes: No visual changes. No eye pain. No eye discharge. ENT: No runny nose. No epistaxis. No sinus pain. No sore throat. No odynophagia. No ear pain. No congestion. RESPIRATORY: Cough. No congestion. No hemoptysis. Shortness of breath. CARDIOVASCULAR: No angina symptoms. No CHF symptoms. No atypical chest pain for CAD. No palpitations. No PND. No orthopnea. GASTROINTESTINAL: No abdominal pain. No nausea or vomiting. No diarrhea or constipation. No hematemesis. No hematochezia. GENITOURINARY: Dysuria. No urgency. No frequency. No hematuria. No obstructive symptoms. No discharge. No pain. No significant abnormal bleeding. MUSCULOSKELETAL: No musculoskeletal pain. No joint swelling. No arthritis. NEUROLOGICAL: No headache. No neck pain. No syncope. No seizures. No dizziness. PSYCHIATRIC: Not anxious. No depression. No suicidal thoughts. No homicidal thoughts. SKIN: No rash. No lesions. No wounds. ENDOCRINE: No unexplained weight loss. No weight gain. HEMATOLOGIC/LYMPHATIC: No anemia. No purpura. No petechiae. No prolonged or excessive bleeding. No palpable lymph nodes. PERSONAL/FAMILY/SOCIAL HISTORY: She is . She currently lives at home by herself. She is a nonsmoker. No alcohol or ilicit drug use. MEDICATIONS: (HOME) Warfarin 6 mg p.o. daily Rosuvastatin 10 mg p.o. bedtime Gabapentin 300 mg p.o. bedtime Sitagliptin (Januvia) 50 mg p.o. daily Duloxetine 60 mg p.o. daily Eszopiclone 2 mg p.o. bedtime Potassium Chloride (K-Dur) 20 mEq p.o. b.i.d. ALLERGIES: CEPHALEXIN MONOHYDRATE PHYSICAL EXAMINATION: GENERAL: Alert and oriented to person, not place or time. VITAL SIGNS: Temperature 100.3, heart rate 104, respirations 20, BP 163/84, pulse ox 89% on room air. HEENT: Head normocephalic, atraumatic. Eyes: Extraocular muscles are intact. Pupils are equal, round and reactive to light and accommodation. Ears: No lesions. Nose appeared normal. Throat: No exudate or erythema. NECK: Supple. No JVD, no carotid bruit. No lymphadenopathy or thyromegaly. LUNGS: Diminished breath sounds with bilateral rhonchi. Percussion note normal. Chest symmetrical. HEART: S1, S2, no S3. No murmur. No cyanosis or clubbing. No ascites. Pulses: Dorsalis pedis and posterior tibial pulses +1 to +2 bilaterally. ABDOMEN: Soft. Nontender. Bowel sounds active. No CVA tenderness. No mass felt. EXTREMITIES: No leg edema. Full range of motion of all extremities, equal. NEUROLOGIC: No focal deficit. Cranial nerves II through XII are grossly intact. No headache, no double vision or headache. SKIN: Not dry. Intact. Turgor - normal. LYMPHATIC: No palpable lymph nodes/no lymphedema. MUSCULOSKELETAL: Normal joints with no swelling. Muscle tone is normal. LABS: White count 9.58, hemoglobin 13.9, hematocrit 41.4, platelets 237. Sodium 132, potassium 3.12, BUN 8.4, creatinine 0.62, glucose 158. AST 37, ALT 15. NT-pro-BNP 196, troponin less than 0.012. Urine significantly abnormal with 2+ protein, 2+ ketones, 1+ blood. Positive nitrites. 3+ leuks. 3+ bacteria. Influenza A and B are both negative. Covid test is pending. ABGs on room air pH 7.516, pc02 34.8, p02 64, base excess of 5, bicarb 28.2, TC02 29, [address] of the chest shows bilateral mid to lower lung pneumonia, 0.7 cm rounded density present in the right lung base which may represent a nodule. Followup CT in three months. ASSESSMENT: 1. BILATERAL PNEUMONIA 2. URINARY TRACT INFECTION, CULTURE PENDING 3. HYPOKALEMIA 4. SHORTNESS OF BREATH 5. HISTORY OF DVT ON COUMADIN 6. RIGHT PULMONARY NODULE, FOLLOWUP CT IN 3 MONTHS PLAN: 1. We will admit. 2. Routine telemetry orders. 3. CBC, CMP daily. 4. COVID test is pending. 5. The patient will remain in isolation. 6. Rocephin 1 gm IV daily. 7. Zithromax 500 mg IV daily for 3 days. 8. Tylenol for fever. 9. Urine for culture and sensitivity. 10. Solu-Cortef 100 mg IV q.12hr. 11. Start Albuterol inhaler as we are unable to do nebs two puffs t.i.d. 12. Oxygen at 1 to 2L as needed. 13. Regular diet. 14. Daily INR. 15. Will follow closely. TIME SPENT: More than 70 minutes. MTDD
[2020-01-07] MEDS: ZITHROMAX 500 MG in SODIUM CHLORIDE 250 ML IV SCH (10:04)
[2020-01-07] MEDS: SYMBICORT 160-4.5 MCG INHALER IH SCH ×2 (10:53→21:17)
[2020-01-07] MEDS: ZITHROMAX PO SCH (10:53)
[2020-01-07] MEDS: HUMULIN R SUBCUT PRN ×2 (13:34→16:46)
[2020-01-07] MEDS ORDERED: REMDESIVIR 200 MG in SODIUM CHLORIDE 210 ML IV ONE (14:30)
[2020-01-07] MEDS: COUMADIN PO SCH (16:47)
[2020-01-07] MEDS: NEURONTIN PO SCH (21:12)
[2020-01-07] MEDS: CRESTOR PO SCH (21:12)
[2020-01-07] MEDS: DECADRON IM SCH (21:12)
[2020-01-07] MEDS: ESZOPICLONE 2 MG PO SCH (21:14)
[2020-01-07] MEDS: SODIUM CHLORIDE 1,000 ML IV SCH (21:15)
[2020-01-08] MEDS: VENTOLIN HFA (PER PUFF-WITH SPACER) IH SCH ×3 (04:40→20:25)
[2020-01-08] MEDS: TYLENOL PO PRN (05:38)
[2020-01-08 05:58] LABS: ALANINE AMINOTRANSFERASE 14.1 U/L (0-35); ALBUMIN 3.01 g/dL (3.5-5.0); ALKALINE PHOSPHATASE 51.6 U/L (53-141); ASPARTATE AMINO TRANSFERASE 25.4 U/L (14-36); BILIRUBIN,TOTAL 0.26 mg/dL (0.2-1.3); BLOOD UREA NITROGEN 12.5 mg/dL (7-17); CALCIUM 9.36 mg/dL (8.4-10.2); CHLORIDE 104.3 mmol/L (98-107); CREATININE 0.54 mg/dL (0.60-1.30); GLUCOSE 141.8 mg/dL (74-106); POTASSIUM 4.26 mmol/L (3.5-5.1); SODIUM 136.3 mmol/L (134.5-145); TOTAL PROTEIN 5.84 g/dL (6.3-8.2)
[2020-01-08 06:01] LABS: HEMATOCRIT 35.8 % (37.0-47.0); HEMOGLOBIN 11.6 g/dl (12.0-16.0); MEAN CORPUSCULAR HEMOGLOBIN 29.5 pg (27.0-31.0); MEAN CORPUSCULAR HGB CONC 32.4 (31.8-35.4); MEAN CORPUSCULAR VOLUME 91.1 fl (81.0-99.0); PLATELET COUNT 291 10^3/uL (140-440); RDW COEFFICIENT OF VARIATION 14.4 % (11.6-14.8); RED BLOOD COUNT 3.93 10^6/ul (4.20-5.40); WHITE BLOOD COUNT 10.52 K/ul (4.6-10.2)
[2020-01-08 06:03] LABS: PROTHROMBIN TIME 27.8 SEC (9.3-11.0)
[2020-01-08 06:21] LABS: ANISOCYTOSIS NOT PRESENT (NOT PRESENT)
[2020-01-08] MEDS ORDERED: REMDESIVIR 100 MG in SODIUM CHLORIDE 80 ML IV SCH (09:00)
[2020-01-08] MEDS: ROCEPHIN 1 GM VIAL IM SCH (09:57)
[2020-01-08] MEDS: LIDOCAINE HCL 1% SDV IM SCH (09:58)
[2020-01-08] MEDS: CYMBALTA PO SCH (09:59)
[2020-01-08] MEDS: DECADRON IM SCH ×2 (09:59→20:38)
[2020-01-08] MEDS: JANUVIA PO SCH (09:59)
[2020-01-08] MEDS: K-DUR PO SCH ×2 (09:59→17:05)
[2020-01-08] MEDS: TORADOL IVP SCH ×2 (09:59→21:21)
[2020-01-08] MEDS: ZITHROMAX PO SCH (09:59)
[2020-01-08] MEDS: PEPCID PO SCH ×2 (09:59→17:04)
--- NOTE | 2020-01-08 10:14 | PCM.PROG ---
Attending Provider: ATTENDING PROVIDER: Dr. CARLTON HERNANDEZ DATE OF SERVICE: 01/08/20 SUBJECTIVE: This 79 year old /WHITE F was hospitalized 01/05/20 with pneumonia and UTI. The patient's fever was supposedly from UTI. She is being treated with Rocephin and Zithromax. COVID is positive now for 2 days. Condition seems to be stable and improving. Appetite normal. She is in no distress. Saturation is 94 to 97% on 2L of oxygen. She doesn't have any cough. Vitals are stable. REVIEW OF SYSTEMS: CONSTITUTIONAL: Fatigue. No night sweats. No malaise, lethargy. No fever or chills. HEENT: Eyes: No visual changes. No eye pain. No eye discharge. ENT: No runny nose. No epistaxis. No sinus pain. No odynophagia. No congestion. RESPIRATORY: No cough, no congestion. No hemoptysis. No shortness of breath. CARDIOVASCULAR: No angina symptoms. No CHF symptoms. No atypical chest pain for CAD. No palpitations. No orthopnea.. GASTROINTESTINAL: No abdominal pain. No nausea or vomiting. No diarrhea or constipation. No hematemesis. No hematochezia. GENITOURINARY: No urgency. No frequency. No dysuria. No hematuria. No obstructive symptoms. No discharge. No pain. No significant abnormal bleeding. MUSCULOSKELETAL: No musculoskeletal pain; no joint swelling. NEUROLOGICAL: Awake, alert, oriented to time, place and person. No headache. No neck pain. No syncope. No seizures. No dizziness. PSYCHIATRIC: Not anxious. No depression. No suicidal thoughts. No homicidal thoughts. SKIN: No rash. No lesions. No wounds. ENDOCRINE: No unexplained weight loss. No weight gain. HEMATOLOGIC/LYMPHATIC: No anemia. No purpura. No petechiae. No prolonged or excessive bleeding. No palpable lymph nodes. PHYSICAL EXAMINATION: GENERAL: The patient is awake, alert and oriented, lying/sitting in bed in no distress. VITAL SIGNS: Temperature 97.4 F, Pulse 79, Respiratory Rate 20, BP 143/65, Pulse Ox 96% HEENT: Head normocephalic, atraumatic. Eyes: Extraocular muscles are intact. Pupils are equal, round and reactive to light and accommodation. Ears: No les ions. Nose appeared normal. Throat: No exudate or erythema. NECK: Supple. No JVD, no carotid bruit. No lymphadenopathy or thyromegaly. LUNGS: Decreased breath sounds. Clear to auscultation. Percussion note normal. Chest symmetrical. HEART: S1, S2, no S3. No murmurs. No cyanosis or clubbing. No ascites. Pulses: Dorsalis pedis and posterior tibial pulses +1 to +2 both sides. ABDOMEN: Soft. Non-tender. Bowel sounds active. No CVA tenderness. No mass felt. EXTREMITIES: No edema. Full range of motion of all extremities, equal. NEUROLOGIC: No focal deficit. Cranial nerves II through XII are grossly intact. No headache, no double vision or headache. SKIN: Warm and dry. Intact. Turgor-normal. LYMPHATIC: No palpable lymph nodes/no lymphedema. MUSCULOSKELETAL: Normal joints with no swelling. Muscle tone is normal. LAB REVIEW: 01/08/20 05:20 01/08/20 05:20 01/08/20 05:20: Sodium 136.3, Potassium 4.26, Chloride 104.3, Carbon Dioxide 29.0, Anion Gap 7.26, BUN 12.5, Creatinine 0.54 L, Estimated GFR (MDRD) 108.00, BUN/Creatinine Ratio 23.14, Glucose 141.8 H, Calcium 9.36, Total Bilirubin 0.26, AST 25.4, ALT 14.1, Alkaline Phosphatase 51.6 L, Total Protein 5.84 L, Albumin 3.01 L, Globulin 2.83, Albumin/Globulin Ratio 1.06 01/08/20 05:20: WBC 10.52 H, RBC 3.93 L, Hgb 11.6 L, Hct 35.8 L, MCV 91.1, MCH 29.5, MCHC 32.4, RDW Coeff of Merari 14.4, Plt Count 291, Neutrophils % (Manual) 49.0, Band Neutrophils % 1.0, Lymphocytes % (Manual) 48.0, Monocytes % (Manual) 1.0, Basophils % (Manual) 1.0, Anisocytosis Not present 01/08/20 05:20: PT 27.8 H D, INR 3.02 01/07/20 05:30: D-Dimer 1665.82 H 01/07/20 05:30: C-Reactive Prot, Quant 75 H ASSESSMENT: Please see below. 1. UTI being treated with Rocephin. 2. Pneumonitis likely from COVID 19. 3. UTI with E. coli. 4. DJD, severe c-psine with multiple surgeries. 5. Diabetes mellitus. 6. Dyslipidemia. 7. Neuropathy. 8. History of DVT recurrent. PLAN: 1. Continue antibiotics. 2. Steroids in the form of Decadron 1 cc twice a day. 3. Famotidine (Pepcid) 40 mg b.i.d. 4. Symbicort 1 to 2 puffs twice a day. 5. Steroids in the form of Decadron 1 cc twice a day. 6. Remdsevir 100 mg times 4 days. Of Note: CRP was 75 and D. dimer close to 1000. Plan and coordination of the patient's care discussed in the presence of Dial Marker and nurse. CONDITION: Stable SCRIBED BY: HAZEL SARABIA Surveillance Analyst scribed while in presence of service performed by Dr. CARLTON HERNANDEZ on 01/08/20 ([id number])
[2020-01-08] MEDS: SYMBICORT 160-4.5 MCG INHALER IH SCH ×2 (10:31→20:39)
[2020-01-08] MEDS: SODIUM CHLORIDE 1,000 ML IV SCH ×2 (12:00→16:00)
[2020-01-08] MEDS: COUMADIN PO SCH (17:16)
[2020-01-08] MEDS: NEURONTIN PO SCH (20:37)
[2020-01-08] MEDS: CRESTOR PO SCH (20:37)
[2020-01-08] MEDS: ESZOPICLONE 2 MG PO SCH (20:38)
[2020-01-09] MEDS: SODIUM CHLORIDE 1,000 ML IV SCH (01:07)
[2020-01-09] MEDS: TYLENOL PO PRN (01:08)
[2020-01-09] MEDS: VENTOLIN HFA (PER PUFF-WITH SPACER) IH SCH ×2 (05:25→17:29)
[2020-01-09 05:44] LABS: HEMATOCRIT 36.2 % (37.0-47.0); HEMOGLOBIN 11.6 g/dl (12.0-16.0); MEAN CORPUSCULAR HEMOGLOBIN 29.1 pg (27.0-31.0); MEAN CORPUSCULAR VOLUME 90.7 fl (81.0-99.0); PLATELET COUNT 313 10^3/uL (140-440); RDW COEFFICIENT OF VARIATION 14.3 % (11.6-14.8); RED BLOOD COUNT 3.99 10^6/ul (4.20-5.40); WHITE BLOOD COUNT 13.97 K/ul (4.6-10.2)
[2020-01-09 05:45] LABS: ALANINE AMINOTRANSFERASE 13.2 U/L (0-35); ALBUMIN 2.81 g/dL (3.5-5.0); ALKALINE PHOSPHATASE 57.2 U/L (53-141); ASPARTATE AMINO TRANSFERASE 23.4 U/L (14-36); BILIRUBIN,TOTAL 0.2 mg/dL (0.2-1.3); BLOOD UREA NITROGEN 20.3 mg/dL (7-17); CALCIUM 9.15 mg/dL (8.4-10.2); CARBON DIOXIDE 28.3 mmol/L (22-30.0); CHLORIDE 105.2 mmol/L (98-107); CREATININE 0.55 mg/dL (0.60-1.30); GLUCOSE 156.4 mg/dL (74-106); POTASSIUM 4.66 mmol/L (3.5-5.1); SODIUM 134.7 mmol/L (134.5-145); TOTAL PROTEIN 5.37 g/dL (6.3-8.2)
[2020-01-09 05:53] LABS: PROTHROMBIN TIME 28.6 SEC (9.3-11.0)
[2020-01-09 05:56] LABS: ANISOCYTOSIS NOT PRESENT (NOT PRESENT)
--- NOTE | 2020-01-09 09:11 | PCM.PROG ---
Attending Provider: ATTENDING PROVIDER: Dr. CARLTON HERNANDEZ This patient is seen with Brynn Sepulveda, Nurse Practitioner. DATE OF SERVICE: 01/09/20 SUBJECTIVE: This 79 year old /WHITE F was hospitalized 01/05/20. The patient is feeling significantly better after Remdesivir. No fever since 01/05 and cough has improved. Eating better. REVIEW OF SYSTEMS: CONSTITUTIONAL: No night sweats. No fatigue, malaise, lethargy. No fever or chills. Weakness. HEENT: Eyes: No visual changes. No eye pain. No eye discharge. ENT: No runny nose. No epistaxis. No sinus pain. No odynophagia. No congestion. RESPIRATORY: Cough, no congestion. No hemoptysis. No shortness of breath. CARDIOVASCULAR: No angina symptoms. No CHF symptoms. No atypical chest pain for CAD. No palpitations. No orthopnea.. GASTROINTESTINAL: No abdominal pain. No nausea or vomiting. No diarrhea or constipation. No hematemesis. No hematochezia. GENITOURINARY: No urgency. No frequency. No dysuria. No hematuria. No obstructive symptoms. No discharge. No pain. No significant abnormal bleeding. MUSCULOSKELETAL: No musculoskeletal pain; no joint swelling. NEUROLOGICAL: Awake, alert, oriented to time, place and person. No headache. No neck pain. No syncope. No seizures. No dizziness. PSYCHIATRIC: Not anxious. No depression. No suicidal thoughts. No homicidal thoughts. SKIN: No rash. No lesions. No wounds. ENDOCRINE: No unexplained weight loss. No weight gain. HEMATOLOGIC/LYMPHATIC: No anemia. No purpura. No petechiae. No prolonged or excessive bleeding. No palpable lymph nodes. PHYSICAL EXAMINATION: GENERAL: The patient is awake, alert and oriented, lying in bed in no distress. VITAL SIGNS: Temperature 97.5 F, Pulse 70, Respiratory Rate 19, BP 139/69, Pulse Ox 95% HEENT: Head normocephalic, atraumatic. Eyes: Extraocular muscles are intact. Pupils are equal, round and reactive to light and accommodation. Ears: No lesions. Nose appeared normal. Throat: No exudate or erythema. NECK: Supple. No JVD, no carotid bruit. No lymphadenopathy or thyromegaly. LUNGS: Diminished breath sounds. Clear to auscultation. Percussion note normal. Chest symmetrical. HEART: S1, S2, no S3. No murmurs. Irregular heart rate. No cyanosis or clubbing. No ascites. Pulses: Dorsalis pedis and posterior tibial pulses +1 to +2 both sides. ABDOMEN: Soft. Non-tender. Bowel sounds active. No CVA tenderness. No mass felt. EXTREMITIES: No edema. Full range of motion of all extremities, equal. NEUROLOGIC: No focal deficit. Cranial nerves II through XII are grossly intact. No headache, no double vision or headache. SKIN: Not dry. Intact. Turgor-normal. LYMPHATIC: No palpable lymph nodes/no lymphedema. MUSCULOSKELETAL: Normal joints with no swelling. Muscle tone is normal. LAB REVIEW: 01/09/20 05:00 01/09/20 05:00 01/09/20 05:00: Sodium 134.7, Potassium 4.66, Chloride 105.2, Carbon Dioxide 28.3, Anion Gap 5.86, BUN 20.3 H, Creatinine 0.55 L, Estimated GFR (MDRD) 106.00, BUN/Creatinine Ratio 36.90, Glucose 156.4 H, Calcium 9.15, Total Bilirubin 0.20, AST 23.4, ALT 13.2, Alkaline Phosphatase 57.2, Total Protein 5.37 L, Albumin 2.81 L, Globulin 2.56, Albumin/Globulin Ratio 1.09 01/09/20 05:00: WBC 13.97 H, RBC 3.99 L, Hgb 11.6 L, Hct 36.2 L, MCV 90.7, MCH 29.1, MCHC 32.0, RDW Coeff of Merari 14.3, Plt Count 313, Neutrophils % (Manual) 34.0 L, Lymphocytes % (Manual) 64.0 H, Monocytes % (Manual) 2.0, Anisocytosis Not present 01/09/20 05:00: PT 28.6 H, INR 3.11 ASSESSMENT: Please see below. 1. Bilateral pneumonia likely from COVID 19 infection 2. UTI-E-coli 3. Coronary artery disease 4. Diabetes Mellitus type 2 5. Hypertension 6. Chronic back pain. PLAN: 1. Decrease IV fluids to 30cc an hour 2. Continue Remdesivir 3. Steroids 4. IV antibiotics Plan and coordination of the patient's care discussed in the presence of Technical Program Manager and nurse. SCRIBED BY: CHRISTINE PARKER, Recycling Attendant scribed while in presence of service performed by Dr. Hernandez/Brynn Sepulveda APRN on 01/09/20 ([id number])
[2020-01-09] MEDS: JANUVIA PO SCH (09:13)
[2020-01-09] MEDS: CYMBALTA PO SCH (09:13)
[2020-01-09] MEDS: K-DUR PO SCH ×2 (09:13→17:02)
--- NOTE | 2020-01-09 09:13 | PN ---
DATE OF SERVICE: 01/07/20 SUBJECTIVE: The patient's Covid test has come back positive. The power of consumer attorney for health, son was notified about it. When I tried to call he didn't answer. He has been instructed by his workplace to go to [facility] and have Covid test performed. Instructions were given by [facility] to quarantine himself for 14 days. The patient, herself, has called her son and let him know that she was positive for the virus. REVIEW OF SYSTEMS: CONSTITUTIONAL: No night sweats. No fatigue, malaise, lethargy. No fever or chills. HEENT: Eyes: No visual changes. No eye pain. No eye discharge. ENT: No runny nose. No epistaxis. No sinus pain. No sore throat. No odynophagia. No congestion. RESPIRATORY: No cough, no congestion. No hemoptysis. No shortness of breath. CARDIOVASCULAR: No angina symptoms. No CHF symptoms. No atypical chest pain for CAD. No palpitations. No PND. No orthopnea. GASTROINTESTINAL: Appetite is almost normal. This morning she had a huge breakfast and also evening meal was good. No abdominal pain. No nausea or vomiting. No diarrhea or constipation. No hematemesis. No hematochezia. GENITOURINARY: No urgency. No frequency. No dysuria. No hematuria. No obstructive symptoms. No discharge. No pain. No significant abnormal bleeding. MUSCULOSKELETAL: Mild pain in the neck as usual with the cervical osteoarthritis. NEUROLOGICAL: She is oriented to time, place and person. No headache. No neck pain. No syncope. No seizures. No dizziness. PSYCHIATRIC: Not anxious. No depression. No suicidal thoughts. No homicidal thoughts. SKIN: No rash. No lesions. No wounds. ENDOCRINE: No unexplained weight loss. No weight gain. HEMATOLOGIC/LYMPHATIC: No anemia. No purpura. No petechiae. No prolonged or excessive bleeding. No palpable lymph nodes. PHYSICAL EXAMINATION: GENERAL: The patient is oriented to time, place and person. Color looks good. VITAL SIGNS: Temperature 98.6, pulse 80, respiratory rate 16, oxygen saturation 97% on 2L. No distress. HEENT: Head normocephalic, atraumatic. Eyes: Extraocular muscles are intact. Pupils are equal, round and reactive to light and accommodation. Ears: No lesions. Nose appeared normal. Throat: No exudate or erythema. NECK: Supple. No JVD, no carotid bruit. No lymphadenopathy or thyromegaly. LUNGS: Decreased breath sounds with few crepitations at the bases. Percussion note normal. Chest symmetrical. HEART: S1, S2, no S3. No murmurs. No cyanosis or clubbing. No ascites. Pulses: Dorsalis pedis and posterior tibial pulses +1 to +2 bilaterally. ABDOMEN: Soft. Nontender. Bowel sounds active. No CVA tenderness. No mass felt. EXTREMITIES: No pedal edema. Full range of motion of all extremities, equal. NEUROLOGIC: No focal deficit. Cranial nerves II through XII are grossly intact. No headache, no double vision or headache. SKIN: Not dry. Intact. Turgor - normal. LYMPHATIC: No palpable lymph nodes/no lymphedema. MUSCULOSKELETAL: Normal joints with no swelling. Muscle tone is normal. ASSESSMENT: 1. COVID POSITIVE PNEUMONIA. 2. URINARY TRACT INFECTION LIKELY CAUSE OF FEVER AT THE TIME OF ADMISSION. 3. SEVERE CERVICAL OSTEOARTHRITIS WITH MULTIPLE SURGERIES. PLAN: 1. Give Remdesivir 100 mg first dose and after that 100 mg for four more days. 2. Venous access is very difficult. If the patient has venous access, the patient is going to be started on Remdesivir. 3. She is doing very well with steroids, antibiotics. Will continue Rocephin, Zithromax and Solu-Cortef. Will switch it to Decadron because IV access is difficult. 4. Symbicort 2 puffs twice a day as an inhaler. 5. The patient has borderline indication for Remdesivir from the criteria that satisfies her oxygen saturation which may be lower on room air. We will not try that but saturation is 97% on 2L. CONDITION: Stable and improving. TIME SPENT: More than 50 minutes. Plan and coordination of the patient's care discussed in the presence of nurse. BUD
[2020-01-09] MEDS: PEPCID PO SCH ×2 (09:14→17:02)
[2020-01-09] MEDS: DECADRON IM SCH ×2 (09:14→20:47)
[2020-01-09] MEDS: TORADOL IVP SCH ×2 (09:15→20:50)
[2020-01-09] MEDS: ROCEPHIN 1 GM VIAL IM SCH (09:15)
[2020-01-09] MEDS: LIDOCAINE HCL 1% SDV IM SCH (09:16)
[2020-01-09] MEDS: REMDESIVIR 100 MG in SODIUM CHLORIDE 80 ML IV SCH (09:17)
[2020-01-09] MEDS: SYMBICORT 160-4.5 MCG INHALER IH SCH ×2 (09:20→20:50)
--- NOTE | 2020-01-09 13:25 | PN ---
DATE OF SERVICE: 01/09/20 SUBJECTIVE: The patient was seen and examined today. The patient's condition has improved. Her oxygen saturation is more than 97 to 98% with 2L. She is not short of breath at rest. She doesn't have any coronary insufficiency or CHF symptoms. She is on Remdesivir, an experimental drug for Covid-19. The patient is Covid positive. She is also on steroids, antibiotics, Symbicort and ventolin inhaler. Condition seems to be improving. TIME SPENT: More than 30 minutes. Plan and coordination of the patient's care discussed in the presence of nurse. BUD
[2020-01-09] MEDS: CRESTOR PO SCH (20:47)
[2020-01-09] MEDS: NEURONTIN PO SCH (20:47)
[2020-01-09] MEDS: ESZOPICLONE 2 MG PO SCH (21:51)
[2020-01-10] MEDS: SODIUM CHLORIDE 1,000 ML IV SCH (03:44)
[2020-01-10] MEDS: VENTOLIN HFA (PER PUFF-WITH SPACER) IH SCH ×2 (05:00→17:45)
[2020-01-10] MEDS: PEPCID PO SCH ×2 (05:32→17:58)
[2020-01-10 07:17] LABS: BASOPHILS % (AUTO) 0.1 % (0.0-3.0); HEMATOCRIT 34.8 % (37.0-47.0); HEMOGLOBIN 11.4 g/dl (12.0-16.0); IMMATURE GRANULOCYTE # (AUTO) 0.1 (0.0-1.0); IMMATURE GRANULOCYTE % (AUTO) 0.4 % (0.0-5.0); LYMPHOCYTES # (AUTO) 13.5 K/uL (0.60-3.4); LYMPHOCYTES % (AUTO) 73.2 (10.0-50.0); MEAN CORPUSCULAR HEMOGLOBIN 29.1 pg (27.0-31.0); MEAN CORPUSCULAR HGB CONC 32.8 (31.8-35.4); MEAN CORPUSCULAR VOLUME 88.8 fl (81.0-99.0); MONOCYTES # (AUTO) 0.5 K/uL (0.4-2.0); MONOCYTES % (AUTO) 2.7 (0-10); NEUTROPHILS # (AUTO) 4.4 K/ul (2.0-6.9); NEUTROPHILS % (AUTO) 23.6 % (42.2-75.2); PLATELET COUNT 343 10^3/uL (140-440); RDW COEFFICIENT OF VARIATION 14.2 % (11.6-14.8); RED BLOOD COUNT 3.92 10^6/ul (4.20-5.40); WHITE BLOOD COUNT 18.44 K/ul (4.6-10.2)
[2020-01-10 07:30] LABS: ALANINE AMINOTRANSFERASE 12.8 U/L (0-35); ALBUMIN 2.67 g/dL (3.5-5.0); ASPARTATE AMINO TRANSFERASE 23.9 U/L (14-36); BILIRUBIN,TOTAL 0.27 mg/dL (0.2-1.3); BLOOD UREA NITROGEN 16.1 mg/dL (7-17); CARBON DIOXIDE 30.1 mmol/L (22-30.0); CHLORIDE 101.1 mmol/L (98-107); CHOLESTEROL 92.7 mg/dL (0-200); CREATININE 0.5 mg/dL (0.60-1.30); GLUCOSE 147.7 mg/dL (74-106); HDL CHOLESTEROL 49.7 mg/dL (35-80); POTASSIUM 4.27 mmol/L (3.5-5.1); SODIUM 133.2 mmol/L (134.5-145); TOTAL PROTEIN 5.11 g/dL (6.3-8.2); TRIGLYCERIDES 47.3 mg/dL (0-150)
[2020-01-10 07:41] LABS: PROTHROMBIN TIME 25.6 SEC (9.3-11.0)
[2020-01-10] MEDS: TORADOL IVP SCH ×2 (08:50→20:07)
[2020-01-10] MEDS: ZOFRAN 4 MG/2 ML IVP PRN (08:50)
[2020-01-10] MEDS: ROCEPHIN 1 GM VIAL IM SCH (09:44)
[2020-01-10] MEDS: DECADRON IM SCH (09:44)
[2020-01-10] MEDS: JANUVIA PO SCH (09:45)
[2020-01-10] MEDS: REMDESIVIR 100 MG in SODIUM CHLORIDE 80 ML IV SCH (09:45)
[2020-01-10] MEDS: CYMBALTA PO SCH (09:45)
[2020-01-10] MEDS: K-DUR PO SCH ×2 (09:45→17:58)
[2020-01-10] MEDS: LIDOCAINE HCL 1% SDV IM SCH (09:46)
[2020-01-10] MEDS: SYMBICORT 160-4.5 MCG INHALER IH SCH ×2 (09:47→20:33)
[2020-01-10 17:48] LABS: ABG PCO2 42.8 mmHg (35-45); ABG PH 7.405 (7.35-7.45)
[2020-01-10 17:49] LABS: ABG BASE EXCESS 2 (-2.0-2.0); ABG HCO3 26.8 (22.0-26.0); ABG TCO2 28 (22.0-28.0)
[2020-01-10] MEDS: HUMULIN R SUBCUT PRN (18:10)
[2020-01-10] MEDS: NEURONTIN PO SCH (20:33)
[2020-01-10] MEDS: CRESTOR PO SCH (20:33)
[2020-01-10] MEDS: ESZOPICLONE 2 MG PO SCH (20:39)
[2020-01-11] MEDS: VENTOLIN HFA (PER PUFF-WITH SPACER) IH SCH ×2 (05:05→18:07)
[2020-01-11 05:09] LABS: HEMATOCRIT 34.5 % (37.0-47.0); MEAN CORPUSCULAR HEMOGLOBIN 28.9 pg (27.0-31.0); MEAN CORPUSCULAR HGB CONC 31.9 (31.8-35.4); MEAN CORPUSCULAR VOLUME 90.6 fl (81.0-99.0); PLATELET COUNT 345 10^3/uL (140-440); RDW COEFFICIENT OF VARIATION 14.3 % (11.6-14.8); RED BLOOD COUNT 3.81 10^6/ul (4.20-5.40); WHITE BLOOD COUNT 20.34 K/ul (4.6-10.2)
[2020-01-11 05:18] LABS: ANISOCYTOSIS NOT PRESENT (NOT PRESENT)
[2020-01-11 05:21] LABS: ALANINE AMINOTRANSFERASE 12.6 U/L (0-35); ALBUMIN 2.55 g/dL (3.5-5.0); ALKALINE PHOSPHATASE 55.5 U/L (53-141); ASPARTATE AMINO TRANSFERASE 36.7 U/L (14-36); BILIRUBIN,TOTAL 0.29 mg/dL (0.2-1.3); BLOOD UREA NITROGEN 18.4 mg/dL (7-17); CALCIUM 8.88 mg/dL (8.4-10.2); CARBON DIOXIDE 31.8 mmol/L (22-30.0); CHLORIDE 102.1 mmol/L (98-107); CREATININE 0.6 mg/dL (0.60-1.30); GLUCOSE 106.3 mg/dL (74-106); POTASSIUM 4.23 mmol/L (3.5-5.1); SODIUM 133.7 mmol/L (134.5-145); TOTAL PROTEIN 4.91 g/dL (6.3-8.2)
[2020-01-11 05:27] LABS: PROTHROMBIN TIME 22.1 SEC (9.3-11.0)
[2020-01-11] MEDS: PEPCID PO SCH ×2 (05:55→17:23)
[2020-01-11] MEDS: SODIUM CHLORIDE 1,000 ML IV SCH ×2 (07:40→14:17)
[2020-01-11] MEDS: TORADOL IVP SCH ×2 (08:57→20:59)
[2020-01-11] MEDS: REMDESIVIR 100 MG in SODIUM CHLORIDE 80 ML IV SCH (08:57)
[2020-01-11] MEDS: DECADRON IM SCH (09:01)
[2020-01-11] MEDS: CYMBALTA PO SCH (09:02)
[2020-01-11] MEDS: JANUVIA PO SCH (09:03)
[2020-01-11] MEDS: K-DUR PO SCH ×2 (09:03→17:24)
[2020-01-11] MEDS: SYMBICORT 160-4.5 MCG INHALER IH SCH ×2 (09:03→21:33)
[2020-01-11] MEDS: LIDOCAINE HCL 1% SDV IM SCH (09:09)
[2020-01-11] MEDS: VITAMIN D PO SCH (17:23)
[2020-01-11] MEDS: ZITHROMAX PO SCH (17:25)
[2020-01-11] MEDS: CRESTOR PO SCH (21:28)
[2020-01-11] MEDS: NEURONTIN PO SCH (21:28)
[2020-01-11] MEDS: OMNICEF PO SCH (21:28)
[2020-01-11] MEDS: ESZOPICLONE 2 MG PO SCH (21:38)
[2020-01-12] MEDS: VENTOLIN HFA (PER PUFF-WITH SPACER) IH SCH (04:43)
[2020-01-12 04:47] LABS: BASOPHILS % (AUTO) 0.1 % (0.0-3.0); EOSINOPHILS # (AUTO) 0.2 K/ul (0.0-0.7); EOSINOPHILS % (AUTO) 0.8 % (0.0-7.0); HEMOGLOBIN 11.3 g/dl (12.0-16.0); IMMATURE GRANULOCYTE # (AUTO) 0.1 (0.0-1.0); IMMATURE GRANULOCYTE % (AUTO) 0.6 % (0.0-5.0); LYMPHOCYTES # (AUTO) 17.4 K/uL (0.60-3.4); LYMPHOCYTES % (AUTO) 78.2 (10.0-50.0); MEAN CORPUSCULAR HEMOGLOBIN 28.7 pg (27.0-31.0); MEAN CORPUSCULAR HGB CONC 31.4 (31.8-35.4); MEAN CORPUSCULAR VOLUME 91.4 fl (81.0-99.0); MONOCYTES # (AUTO) 0.7 K/uL (0.4-2.0); NEUTROPHILS # (AUTO) 3.9 K/ul (2.0-6.9); NEUTROPHILS % (AUTO) 17.3 % (42.2-75.2); PLATELET COUNT 345 10^3/uL (140-440); RDW COEFFICIENT OF VARIATION 14.3 % (11.6-14.8); RED BLOOD COUNT 3.94 10^6/ul (4.20-5.40)
[2020-01-12 05:00] LABS: PROTHROMBIN TIME 18.7 SEC (9.3-11.0)
[2020-01-12 05:01] LABS: ALBUMIN 2.55 g/dL (3.5-5.0); ALKALINE PHOSPHATASE 61.3 U/L (53-141); ASPARTATE AMINO TRANSFERASE 24.1 U/L (14-36); BILIRUBIN,TOTAL 0.36 mg/dL (0.2-1.3); BLOOD UREA NITROGEN 22.3 mg/dL (7-17); CALCIUM 8.87 mg/dL (8.4-10.2); CARBON DIOXIDE 33.2 mmol/L (22-30.0); CHLORIDE 100.5 mmol/L (98-107); CREATININE 0.66 mg/dL (0.60-1.30); GLUCOSE 107.1 mg/dL (74-106); POTASSIUM 4.39 mmol/L (3.5-5.1); SODIUM 133.3 mmol/L (134.5-145); TOTAL PROTEIN 4.88 g/dL (6.3-8.2)
[2020-01-12] MEDS: PEPCID PO SCH (05:51)
[2020-01-12] MEDS: CYMBALTA PO SCH (08:55)
[2020-01-12] MEDS: OMNICEF PO SCH (08:55)
[2020-01-12] MEDS: ZITHROMAX PO SCH (08:57)
[2020-01-12] MEDS: JANUVIA PO SCH (08:57)
[2020-01-12] MEDS: DECADRON IM SCH (08:57)
[2020-01-12] MEDS: K-DUR PO SCH (08:57)
[2020-01-12] MEDS: LIDOCAINE HCL 1% SDV IM SCH (08:58)
[2020-01-12] MEDS: SYMBICORT 160-4.5 MCG INHALER IH SCH (08:58)
[2020-01-12] MEDS: VITAMIN D PO SCH (09:01)
[2020-01-12 10:03] VITALS: BP 128/82; TEMP 98.2
--- NOTE | 2020-01-13 14:45 | PN ---
DATE OF SERVICE: 01/10/20 SUBJECTIVE: 79-year-old white female hospitalized with fever, chills and pneumonia. The patient's fever and chills were from urinary tract infection, E. coli. She responded to treatment immediately and she became afebrile within 24 hours. After that the patient has been afebrile for the last 5 to 6 days. The patient's Covid test came back positive. It was an incidental finding with having bronchitis and pneumonia. The patient's condition has improved. She is feeling a lot better. She is feeling stronger. She is up and about. REVIEW OF SYSTEMS: CONSTITUTIONAL: No night sweats. No fatigue, malaise, lethargy. No fever or chills. HEENT: Eyes: No visual changes. No eye pain. No eye discharge. ENT: No runny nose. No epistaxis. No sinus pain. No sore throat. No odynophagia. No congestion. RESPIRATORY: No cough, no congestion. No hemoptysis. Shortness of breath on minimal exertion but that is the way she has been. CARDIOVASCULAR: No angina symptoms. No CHF symptoms. No atypical chest pain for CAD. No palpitations. No PND. No orthopnea. GASTROINTESTINAL: Appetie has improved. No abdominal pain. No nausea or vomiting. No diarrhea or constipation. No hematemesis. No hematochezia. GENITOURINARY: No urgency. No frequency. No dysuria. No hematuria. No obstructive symptoms. No discharge. No pain. No significant abnormal bleeding. MUSCULOSKELETAL: No musculoskeletal pain; no joint swelling. NEUROLOGICAL: No headache. No neck pain. No syncope. No seizures. No dizziness. PSYCHIATRIC: Not anxious. No depression. No suicidal thoughts. No homicidal thoughts. SKIN: No rash. No lesions. No wounds. ENDOCRINE: No unexplained weight loss. No weight gain. HEMATOLOGIC/LYMPHATIC: No anemia. No purpura. No petechiae. No prolonged or excessive bleeding. No palpable lymph nodes. PHYSICAL EXAMINATION: VITAL SIGNS: Temperature 98.1, pulse 82, respiratory rate 20, BP 142/76, pulse ox 97% on room air. HEENT: Head normocephalic, atraumatic. Eyes: Extraocular muscles are intact. Pupils are equal, round and reactive to light and accommodation. Ears: No lesions. Nose appeared normal. Throat: No exudate or erythema. NECK: Supple. No JVD, no carotid bruit. No lymphadenopathy or thyromegaly. LUNGS: Decreased breath sounds but clear to auscultation. Percussion note normal. Chest symmetrical. HEART: S1, S2, no S3. No murmurs. No cyanosis or clubbing. No ascites. Pulses: Dorsalis pedis and posterior tibial pulses +1 to +2 bilaterally. ABDOMEN: Soft. Nontender. Bowel sounds active. No CVA tenderness. No mass felt. EXTREMITIES: No edema. Full range of motion of all extremities, equal. NEUROLOGIC: No focal deficit. Cranial nerves II through XII are grossly intact. No headache, no double vision or headache. SKIN: Not dry. Intact. Turgor - normal. LYMPHATIC: No palpable lymph nodes/no lymphedema. MUSCULOSKELETAL: Normal joints with no swelling. Muscle tone is normal. ABGs were done later on in the evening which showed p02 of 64, saturation 96% on room air. Hemoglobin 11.4, hematocrit 36, WBC 18,000, normal differential. Creatinine 0.5, BUN 16, potassium 4.2. ASSESSMENT: 1. UTI with E. coli seems to have resolved or under control with Rocephin. 2. Covid-19 pneumonia. 3. History of recurrent DVT. PLAN: 1. The patient is on Coumadin. Her INR is 2.7 so Coumadin will be held. 2. The patient is already on Remdesivir, Famotidine, steroids, antibiotics, inhalers, both bronchodilator and steroids. The patient's condition is stable, improving. The patient wants to go home. Nurse in attendance, Patsy, had talked to the son for nearly an hour explaining to him what to do with the patient when she comes back home very likely tomorrow. He understood it and he is comfortable with it. The patient's son was checked and he was Covid negative. The patient has been educated about Covid-19. She is very comfortable with it. The patient does not have any fever for the past five days, doesn't have any cough. Appetite is improving. Her sense of smell is almost normal. Will do just for the sake of interest, D. dimer, CRP. Lymphocyte count is up, it's down then it is a poor prognosis. Condition improving. Prognosis is guarded. TIME SPENT: More than 30 minutes. Plan and coordination of the patient's care discussed in the presence of nurse. BUD
--- NOTE | 2020-01-13 14:49 | DS ---
DATE OF SERVICE: 01/12/2020 FINAL DIAGNOSIS: 1. COVID 19/Pneumonia 2. UTI with e-coli 3. Recurrent DVT on Coumadin 4. Severe generalized osteoarthritis on pain management at Dr. Aguayo 5. 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 Cervical and lumbar radiculopathy 7. Dyslipidemia 8. Diabetes Mellitus DISCHARGE INSTRUCTIONS: Discharge. Advised to continue her Cymbalta,Lunesta, Gabapentin, Crestor, Januvia, Coumadin, K-Dur as before. The Coumadin has been reduced to 5mg PO daily. The patient did not qualify for home oxygen. Go to nearest emergency room if the patient develops, chills, fever and shortness of breath. The patient is to be followed by Home Health Care to check the vitals, medications and nutrition. Instruction to come back in 10 days for followup to my office. MEDICATIONS AT DISCHARGE: Cymbalta Lunesta Gabapentin Crestor Januvia Coumadin 5mg PO daily K-Dur NEW PRESCRIPTIONS: Omnicef 300mg PO twice a day for 5 days Zithromax 250mg PO daily for 5 days D3 5000 units one a day for 15 days Famotidine 20mg twice a day for 15 days Symbicort 160-4.5 two puffs daily Proventil HFA two puffs QID PRN for shortness of breath. DIET INSTRUCTIONS: Resume Diabetic diet ACTIVITY: As tolerated. SMOKING: N/A DISEASE SPECIFIC EDUCATION: COVID-19 NEW MEDICATIONS FOLLOWUP DIET LABS: Hgb 11.3, hct 36, WBC 22,000 normal differential, creatinine 0.6, BUN 22, potassium 4.3. The patient's WBC is up because of steroid use. The patient had e-coli in the urine, T4 TSH normal. PRO BNP was 196 on admission. GFR is 86 cc per minute. The patient's D-dimer went down by 300m points. Repeat CRP pending. HOSPITAL COURSE: Carmen Astudillo 79 year old white female hospitalized through the emergency room with fever and chills, e-coli UTI which was treated with Rocephin. She was also treated with Levaquin and Zithromax for Pneumonia. COVID-19 swab came back positive. Pneumonia could be because of COVID-19. In any case the patient's condition continued to improve with aggressive treatment the patient was given to. Started right away with Remdesivir 200mg first dose and after that 100mg times four total of 5 days of Remdesivir treatment was given. She was also started on Solu-Medrol later on switched to Decadron 1cc that is 4mg twice a day. At the time of discharge she was put on Prednisone 10mg daily to be taken for 5 days at home. She was also given Proventil HFA two puffs three times a day along with Symbicort two puffs daily. The medications used were Famotidine and Vitamin D3. At the time of discharge the patient has been up and about for two to three days with her oxygen saturation of more than 95% on room air. Appetite has improve remarkably. The son who is the [employer] Worker for health was educated about COVID-19 everyday basis when he was on the phone for 1 hour with the nurse. The patient's son felt satisfied that he could take care of her at home. The patient's son is COVID Negative. The patient's condition at the time of discharge is stable. The patient is strongly instructed to stay in the house for at least 10 days and all the different precautions to be taken and given measures discussed with the patient along with complications of COVID-19 including late complications. TIME SPENT: More than 60 minutes. ADDENDUM: The patient also has history of chronic lymphocytic leukemia, leukocyte count was elevated with WBC during the stay in the hospital because of it but it could be because of the steroid use. The patient also has restrictive lung disease chronic kyphosis. Considering the patient's problems like chronic lymphocytic leukemia, recurrent DVT, Diabetes Mellitus. On admission evidence of urinary tract infection with e-coli. It could be COVID-19. She was up and about and was discharged home in stable condition to be followed as an outpatient. The patient had following surgeries: A couple of spine surgeries a couple of times, Glaucoma surgery on the left eye, right shoulder surgery, right total knee replacement, pump stimulator insertion by Dr. Aguayo for pain management. BUD
--- NOTE | 2020-01-15 09:04 | PN ---
DATE OF SERVICE: 01/11/20 SUBJECTIVE: 79-year-old white female hospitalized with UTI which is E. coli, responded to Rocephin and became afebrile within 24 hours. The patient also had pneumonia. The patient had very mild cough. Within 24 hours, the patient's condition had improved. Woody came back positive after 36 hours and was on Remdesivir after that along with Solu-Cortef, Famotidine, inhalers. Her condition has improved. Her oxygen saturation is more than 95% on room air. She is up and about. She doesn't want to go home as she feels like the son may not be ready. She has other concern about whether she could manage herself. Will give her one more day of hospital stay just to get settled. REVIEW OF SYSTEMS: CONSTITUTIONAL: No night sweats. No fatigue, malaise, lethargy. No fever or chills. HEENT: Eyes: No visual changes. No eye pain. No eye discharge. ENT: No runny nose. No epistaxis. No sinus pain. No sore throat. No odynophagia. No congestion. RESPIRATORY: No cough, no congestion. No hemoptysis. No shortness of breath. CARDIOVASCULAR: No angina symptoms. No CHF symptoms. No atypical chest pain for CAD. No palpitations. No PND. No orthopnea. GASTROINTESTINAL: Appetite seems to be better. No abdominal pain. No nausea or vomiting. No diarrhea or constipation. No hematemesis. No hematochezia. GENITOURINARY: No urgency. No frequency. No dysuria. No hematuria. No obstructive symptoms. No discharge. No pain. No significant abnormal bleeding. MUSCULOSKELETAL: No musculoskeletal pain; no joint swelling. NEUROLOGICAL: No headache. No neck pain. No syncope. No seizures. No dizziness. PSYCHIATRIC: Not anxious. No depression. No suicidal thoughts. No homicidal thoughts. SKIN: No rash. No lesions. No wounds. ENDOCRINE: No unexplained weight loss. No weight gain. HEMATOLOGIC/LYMPHATIC: No anemia. No purpura. No petechiae. No prolonged or excessive bleeding. No palpable lymph nodes. PHYSICAL EXAMINATION: VITAL SIGNS: Temperature 98.2, pulse 77, respiratory rate 16, BP 128/67, pulse ox 94% on room air. HEENT: Head normocephalic, atraumatic. Eyes: Extraocular muscles are intact. Pupils are equal, round and reactive to light and accommodation. Ears: No lesions. Nose appeared normal. Throat: No exudate or erythema. NECK: Supple. No JVD, no carotid bruit. No lymphadenopathy or thyromegaly. LUNGS: Decreased breath sounds but clear to auscultation. Percussion note normal. Chest symmetrical. HEART: S1, S2, no S3. No murmurs. No cyanosis or clubbing. No ascites. Pulses: Dorsalis pedis and posterior tibial pulses +1 to +2 bilaterally. ABDOMEN: Soft. Nontender. Bowel sounds active. No CVA tenderness. No mass felt. EXTREMITIES: No edema. Full range of motion of all extremities, equal. NEUROLOGIC: No focal deficit. Cranial nerves II through XII are grossly intact. No headache, no double vision or headache. SKIN: Not dry. Intact. Turgor - normal. LYMPHATIC: No palpable lymph nodes/no lymphedema. MUSCULOSKELETAL: Normal joints with no swelling. Muscle tone is normal. LABS: Hemoglobin 11, hematocrit 34, WBC 20,000 with high lymphocyte count. Creatinine 0.6, BUN 18, potassium 4.2. D. dimer is less than what it was on admission. ASSESSMENT: 1. Covid-19 pneumonia seems to be improving clinically with Remdesivir, steroids, Famotidine and inhalers. 2. UTI with E. coli seems to have been under control with Rocephin. 3. Recurrent DVT with INR of 2.37. PLAN: 1. Will hold the patient's Coumadin today. 2. Continue Remdesivir which is the last dose today. 3. 1 cc Decadron daily. 4. Continue Famotidine. 5. Continue inhalers. 6. Will discontinue Rocephin and put her on Omnicef 300 mg twice a day. 7. She is off Azactam, will continue Zithromax 250 mg p.o. daily. 8. The patient will be discharged tomorrow. The patient was educated about Covid-19 practically every day. She was educated about it today. CONDITION: Stable. TIME SPENT: More than 30 minutes. Plan and coordination of the patient's care discussed in the presence of nurse. BUD
--- NOTE | 2020-01-19 10:53 | PN ---
DATE OF SERVICE: 01/12/2020 SUBJECTIVE: 79 year old white female hospitalized with UTI with fever and chills. She was treated with Rocephin. The patient's condition has improved. She was afebrile within 12-24 hours. The patient also had pneumonia likely from COVID 19. She had COVID 19 positive swab and was treated with Remdesivir and several other medications like steroids and steroid inhaler, Proventil inhaler. The patient's condition improved remarkably within 2-3 days. The patient's saturation for the past 3-4 days has been more than 94% on room air. She hardly wears oxygen. She is up and about. Appetite has improved. The patient was discharged on same medications to be continued. In addition to that the patient was put on Omnicef 300mg BID for 5 days along with Zithromax 250mg PO daily for 5 days. Prednisone 10mg two tablets for 5 days, Vitamin D 3 5000 units for 15 days, Famotidine 20mg BID for 15 days. The patient is to rest. [employer] [facility] is going to be for need of oxygen at home. Home Health Care is going to be consulted. The patient's son has been made aware of the discharge and with the situation. The patient lives alone with the help of daughter and the son. Prior to hospitalization the patient was on her driving car etc. and doing all the activity of daily living. CONDITION: Stable. TIME SPENT: More than 30 minutes. Plan and coordination of the patient's care discussed in the presence of nurse. BUD
--- NOTE | 2020-01-19 10:53 | PN ---
01/05/2020: Level 5 01/06/2020: Intermediate 01/07/2020: Intermediate 01/08/2020: Extensive 01/09/2020: Extensive 01/10/2020: Extensive 01/11/2020: Intermediate 01/12/2020: D as in discharge MTDD
== END 2020-01-12 15:00 | disposition home health service (06) | DRG 177 ==
LOC: ED 17:14 → SCU 19:54
PROVIDERS: ADMIT Internal Medicine; ATTEND Internal Medicine
DX: R91.1 Solitary pulmonary nodule; G89.29 Other chronic pain; Z51.81 Encounter for therapeutic drug level monitoring; I48.91 Unspecified atrial fibrillation; R06.02 Shortness of breath; U07.1 COVID-19; B96.20 Unspecified Escherichia coli [E. coli] as the cause of diseases classified elsewhere; M15.0 Primary generalized (osteo)arthritis; G62.9 Polyneuropathy, unspecified; C91.10 Chronic lymphocytic leukemia of B-cell type not having achieved remission; M40.209 Unspecified kyphosis, site unspecified; J12.89 Other viral pneumonia; M47.812 Spondylosis without myelopathy or radiculopathy, cervical region; Z79.899 Other long term (current) drug therapy; M54.16 Radiculopathy, lumbar region; J98.4 Other disorders of lung; M54.12 Radiculopathy, cervical region; E87.6 Hypokalemia; Z87.440 Personal history of urinary (tract) infections; E78.5 Hyperlipidemia, unspecified; I10 Essential (primary) hypertension; E11.9 Type 2 diabetes mellitus without complications; N39.0 Urinary tract infection, site not specified; Z79.01 Long term (current) use of anticoagulants; M54.9 Dorsalgia, unspecified; I25.10 Atherosclerotic heart disease of native coronary artery without angina pectoris; Z86.718 Personal history of other venous thrombosis and embolism

== ENCOUNTER 2021-10-22 09:51 | Observation (INO) ==
--- NOTE | 2021-10-22 09:54 | ED.PDOC ---
General ED Provider: Dr. YOANA GALLARDO Chief Complaint: Back Pain Stated Complaint: fell walking dog brought in by ems hurts all from head to pelvis legs feel weak takes coumadin for dvt no loc no vomiting Time Seen by Provider: 10/22/21 10:17 Mode of Arrival: Ambulance Information Source: Patient, Family and EMT Exam Limitations: No limitations Primary Care Provider: CARLTON HERNANDEZ Nursing and Triage Documentation Reviewed and Agree: Yes Does patient meet sepsis criteria?: No System Inflammatory Response Syndrome: Not Applicable Sepsis Protocol: For patient's 13 years and over: Temp is 96.8 and below OR 101 and greater Pulse >90 BPM Resp >20/minute Acutely Altered Mental Status Are patient's symptoms suggestive of a new infection, such as: -Pneumonia -Skin, Soft Tissue -Endocarditis -UTI -Bone, Joint Infection -Implantable Device -Acute Abdominal Infection -Wound Infection -Meningitis -Blood Stream Catheter Infection -Unknown Review of Systems Review Of Systems Constitutional: Denies Chills, Diaphoresis, Fever or Sweats Eyes: Reports No symptoms Ears, Nose, Mouth, Throat: Reports No symptoms Respiratory: Reports No symptoms Cardiac: Reports No symptoms GI: Reports Abdominal pain; Denies Abdomen distended, Difficulty swallowing or Rectal bleeding : Reports No symptoms and Pain (pelvis ); Denies Hematuria Musculoskeletal: Reports Back pain and Neck pain Skin: Denies Bruising Neurological: Reports Anxiety and Weakness (she has a hx of leg weakness per family pt thinks her legs might be weaker than normal ) Endocrine: Reports No symptoms Hematologic/Lymphatic: Reports Blood clots All Other Systems: Reviewed and Negative PFSH Medical History Anxiety Back pain Back pain with history of spinal surgery Depression Diabetes Pneumonia UTI (urinary tract infection) Family History Other No known health problems Social History Smoking and tobacco status: Never smoker Surgical History History of cholecystectomy Female Reproductive History Menstrual control method: none Hx Hysterectomy: No Hx Tubal Ligation: No Physical Exam Physical Exam Appearance: Reports Ill-appearing, Thin and Other (mod thoracic kyphosis) Ill-appearing: Mild Pain Distress: Moderate Eyes: Reports TONO, EOMI and Conjunctiva clear ENT: Reports Ears normal, Nose normal and Oropharynx normal Neck: Supple (hurts all over ) Respiratory: Reports Airway patent, Breath sounds clear and Respirations nonlabored; Denies Airway obstructed, Crackles, Rhonchi, Wheezes or Retractions Cardiovascular: Reports RRR and No murmur GI/: Reports Tender (all over) Musculoskeletal: Reports Normal strength (both legs symetric strength), No edema and No calf tenderness; Denies Edema or Calf tenderness Skin: Reports Warm, Dry and Normal color; Denies Diaphoretic or Cyanotic Neurological: Reports Sensation intact, Motor intact, Cranial nerves intact, Alert, Oriented and Other (pt thinks she might be weakler than her normal ); Denies Disoriented, Unresponsive or Abnormal reflexes Psychiatric: Reports Anxious Interpretation Radiology Interpretation Radiology Interpretation By: Radiologist Radiology Results: Negative Exam Interpreted: CT Scan Xray Comments: all no acute fx EKG Interpretation Time of EKG #1: 18:16 Rate: Normal Rhythm: Sinus Ectopy: PACs [place]: Left ST Segment: Normal Interpretation: inverted t wave III and avf Critical Care Note Critical Care Note Total Critical Care Time (mins): 30 Comments: exams meds family reports Course Course Hematology/Chemistry: 10/22/21 20:58 10/22/21 10:39 Orders, Labs, Meds: Lab Review 10/22/21 10/22/21 10/22/21 10:39 10:39 10:39 WBC 12.98 H RBC 4.39 Hgb 13.6 Hct 42.5 MCV 96.8 MCH 31.0 MCHC 32.0 RDW Coeff of Merari 12.8 Plt Count 195 Immature Gran % (Auto) 1.7 Neut % (Auto) 53.8 Lymph % (Auto) 41.1 Barron % (Auto) 2.6 Eos % (Auto) 0.5 Baso % (Auto) 0.3 Neut # (Auto) 7.0 H Lymph # (Auto) 5.3 H Barron # (Auto) 0.3 L Eos # (Auto) 0.1 Baso # (Auto) 0.0 Immature Gran # (Auto) 0.2 PT 16.5 H INR 1.63 Sodium 139.6 Potassium 3.71 Chloride 104.3 Carbon Dioxide 27.9 Anion Gap 11.11 BUN 10.2 Creatinine 0.65 Estimated GFR (MDRD) 87.00 BUN/Creatinine Ratio 15.69 Glucose 123.1 H Calcium 9.83 Total Bilirubin 1.04 AST 36.2 H ALT 18.7 Alkaline Phosphatase 69.2 Troponin I Total Protein 6.98 Albumin 4.23 Globulin 2.75 Albumin/Globulin Ratio 1.53 Blood Type Antibody Screen 10/22/21 10/22/21 10/22/21 10:39 10:39 10:39 WBC RBC Hgb Hct MCV MCH MCHC RDW Coeff of Merari Plt Count Immature Gran % (Auto) Neut % (Auto) Lymph % (Auto) Barron % (Auto) Eos % (Auto) Baso % (Auto) Neut # (Auto) Lymph # (Auto) Barron # (Auto) Eos # (Auto) Baso # (Auto) Immature Gran # (Auto) PT INR Sodium Potassium Chloride Carbon Dioxide Anion Gap BUN Creatinine Estimated GFR (MDRD) BUN/Creatinine Ratio Glucose Calcium Total Bilirubin AST ALT Alkaline Phosphatase Troponin I < 0.012 Total Protein Albumin Globulin Albumin/Globulin Ratio Blood Type O POSITIVE O POSITIVE Antibody Screen Negative 10/22/21 14:23 WBC RBC Hgb 13.0 Hct MCV MCH MCHC RDW Coeff of Merari Plt Count Immature Gran % (Auto) Neut % (Auto) Lymph % (Auto) Barron % (Auto) Eos % (Auto) Baso % (Auto) Neut # (Auto) Lymph # (Auto) Barron # (Auto) Eos # (Auto) Baso # (Auto) Immature Gran # (Auto) PT INR Sodium Potassium Chloride Carbon Dioxide Anion Gap BUN Creatinine Estimated GFR (MDRD) BUN/Creatinine Ratio Glucose Calcium Total Bilirubin AST ALT Alkaline Phosphatase Troponin I Total Protein Albumin Globulin Albumin/Globulin Ratio Blood Type Antibody Screen Orders Category Date Time Status NPO [NOTHING BY MOUTH] DIETARY 10/22/21 Lunch Ordered ED IV/MEDIPORT/POWERPORT .ONCE EMERGENCY 10/22/21 10:21 Active CBC W/ AUTO DIFF Stat LAB 10/22/21 10:39 Completed CMP [COMPREHENSIVE METABOLIC PANEL] Stat LAB 10/22/21 10:39 Completed COVID [SARS COV-2 RNA RAPID ADI] Stat LAB 10/22/21 Completed HEMOGLOBIN Stat LAB 10/22/21 14:23 Completed PT WITH INR Stat LAB 10/22/21 10:39 Completed TYPE AND SCREEN Stat LAB 10/22/21 10:39 Completed 0.9 % Sodium Chloride [Saline Flush] MEDS 10/22/21 10:21 Active 1 syr IVF PRN PRN Morphine Sulfate [Morphine 2 mg/ml Syringe (Ed Pyxis)] MEDS 10/22/21 12:52 Discontinued 1 mg IVP ONCE STA Morphine Sulfate [Morphine 2 mg/ml Syringe (Ed Pyxis)] MEDS 10/22/21 14:30 Discontinued 2 mg .ROUTE .STK-MED ONE Morphine Sulfate [Morphine 2 mg/ml Syringe (Ed Pyxis)] MEDS 10/22/21 10:29 Discontinued 2 mg IVP ONCE STA Morphine Sulfate [Morphine 2 mg/ml Syringe (Ed Pyxis)] MEDS 10/22/21 12:26 Discontinued 2 mg IVP ONCE STA Morphine Sulfate [Morphine 2 mg/ml Vial (Medsurg Pyxis) MEDS 10/22/21 14:18 Discontinued ] 1 mg IVP ONCE STA CHEST, 1V AP ONLY Stat RADS 10/22/21 11:[address] ABDOMEN/PELVIS WO CONTRAST Stat RADS 10/22/21 11:[address] CERVICAL SPINE W/O CONTRAST Stat RADS 10/22/21 11:[address] HEAD W/O CONTRAST Stat RADS 10/22/21 11:[address] LUMBAR SPINE W/O CONTRAST Stat RADS 10/22/21 11:[address] THORACIC SPINE W/O CONTRAST Stat RADS 10/22/21 11:34 Completed PELVIS 1 OR 2 VIEWS Stat RADS 10/22/21 10:21 Completed Medications Generic Name Dose Route Start Last Admin Trade Name Freq PRN Reason Stop Dose Admin Duloxetine HCl 60 mg 10/23/21 09:00 Duloxetine Hcl 30 Mg Capsule.Dr PO DAILY BRAD Gabapentin 300 mg 10/22/21 21:00 10/22/21 21:57 Gabapentin 300 Mg Capsule PO 300 mg BEDTIME BRAD Administration Insulin Human Regular 0 unit 10/22/21 21:42 10/22/21 22:11 Insulin Regular, Human 100 Unit/Ml (3ml) Vial SUBCUT 3 unit PRN PRN Administration Hyperglycemia Protocol Rosuvastatin Calcium 20 mg 10/22/21 21:00 10/22/21 21:57 Rosuvastatin Calcium 10 Mg Tablet PO 20 mg BEDTIME BRAD Administration Sitagliptin Phosphate 50 mg 10/23/21 09:00 Sitagliptin Phosphate 50 Mg Tablet PO DAILY BRAD Sodium Chloride 1 syr 10/22/21 10:21 10/22/21 22:00 0.9% Sodium Chloride 10 Ml Disp.Syrin IVF 1 syr PRN PRN Administration To flush IV Warfarin Sodium 6 mg 10/22/21 22:00 10/22/21 21:54 Warfarin Sodium 5 Mg Tablet PO 6 mg DAILY BRAD Administration Discontinued Medications Generic Name Dose Route Start Last Admin Trade Name Freq PRN Reason Stop Dose Admin Morphine Sulfate 2 mg 10/22/21 10:29 10/22/21 10:44 Morphine Sulfate 2 Mg/Ml Syringe (Ed Pyxis) IVP 10/22/21 10:30 2 mg ONCE STA Administration Morphine Sulfate 2 mg 10/22/21 12:26 10/22/21 12:36 Morphine Sulfate 2 Mg/Ml Syringe (Ed Pyxis) IVP 10/22/21 12:27 2 mg ONCE STA Administration Morphine Sulfate 1 mg 10/22/21 12:52 10/22/21 14:06 Morphine Sulfate 2 Mg/Ml Syringe (Ed Pyxis) IVP 10/22/21 12:53 1 mg ONCE STA Administration Morphine Sulfate 1 mg 10/22/21 14:18 10/22/21 14:36 Morphine Sulfate 2 Mg/Ml Vial (Medsurg Pyxis) IVP 10/22/21 14:19 Not Given ONCE STA Vital Signs: Temp Pulse Resp BP Pulse Ox 10/22/21 09:53 99.5 F 78 18 177/91 H 95 1030 - family update with RN I obtained P- pelvis first to access for acute pelvic fracture due to right hip pain.IF obviously positive I was going to initiate transfer if positive while continuing eval and tx - pelvis appears intact .Log roll pt with nursing assist and no loss of sphincter tone or sensation Administered 2 mg Morphine ( pt has medication pump unknown med for chronic back pain ) and decreased pain . Ct currently being cleaned due to prior covid positive pt ( 1105) She reports her legs being better and when discussed with family she has a hx of leg weakness 1320 We have provided additional pain relief and are working with pt to get her scanned and stoppeing when she request. Will reasssss pain and hopefully can finish scanning Remains alert / Neg head chest abd pelvis lumbar / pelvis 1420 good sc=kin color / alert check 4 hr hemoglobin / add 1 mg MS attempt to complete scan 1500 will reassess and return to imaging / she has some left rib pain no chest pain willl attempt to complete c & t spine 1600 generation engineering technologist noted final ct pending difficult exam d/t pt body habitus repeat [id number] was 13.6 / pt comfortable exams completed no acute fx with in limitations of pt kyphosis and osteopenia She is alert / less pain / no new sx repeat exam - pt reports feeling at her baseline Discussed with Dr Hernandez - can admit here SBAR given / pt agrees with plan Discharge Plan Discharge Patient Disposition: PLACED OBSERVATION Discharge Problem: Contusion of multiple sites ED Provider: YOANA GALLARDO Condition: Good Physician Progress Note: []
[2021-10-22] MEDS ORDERED: MORPHINE 4 MG/ML SYRINGE IVP STA (10:24)
[2021-10-22] MEDS ORDERED: MORPHINE 2 MG/ML SYRINGE IVP STA ×3 (10:29→12:52)
[2021-10-22 10:49] LABS: BASOPHILS % (AUTO) 0.3 % (0.0-3.0); EOSINOPHILS # (AUTO) 0.1 K/ul (0.0-0.7); EOSINOPHILS % (AUTO) 0.5 % (0.0-7.0); HEMATOCRIT 42.5 % (37.0-47.0); HEMOGLOBIN 13.6 g/dl (12.0-16.0); IMMATURE GRANULOCYTE # (AUTO) 0.2 (0.0-1.0); IMMATURE GRANULOCYTE % (AUTO) 1.7 % (0.0-5.0); LYMPHOCYTES # (AUTO) 5.3 K/uL (0.60-3.4); LYMPHOCYTES % (AUTO) 41.1 (10.0-50.0); MEAN CORPUSCULAR VOLUME 96.8 fl (81.0-99.0); MONOCYTES # (AUTO) 0.3 K/uL (0.4-2.0); MONOCYTES % (AUTO) 2.6 (0-10); NEUTROPHILS % (AUTO) 53.8 % (42.2-75.2); PLATELET COUNT 195 10^3/uL (140-440); RDW COEFFICIENT OF VARIATION 12.8 % (11.6-14.8); RED BLOOD COUNT 4.39 10^6/ul (4.20-5.40); WHITE BLOOD COUNT 12.98 K/ul (4.6-10.2)
[2021-10-22 10:56] LABS: ALANINE AMINOTRANSFERASE 18.7 U/L (0-35); ALBUMIN 4.23 g/dL (3.5-5.0); ALKALINE PHOSPHATASE 69.2 U/L (53-141); ASPARTATE AMINO TRANSFERASE 36.2 U/L (14-36); BILIRUBIN,TOTAL 1.04 mg/dL (0.2-1.3); BLOOD UREA NITROGEN 10.2 mg/dL (7-17); CALCIUM 9.83 mg/dL (8.4-10.2); CARBON DIOXIDE 27.9 mmol/L (22-30.0); CHLORIDE 104.3 mmol/L (98-107); CREATININE 0.65 mg/dL (0.60-1.30); GLUCOSE 123.1 mg/dL (74-106); POTASSIUM 3.71 mmol/L (3.5-5.1); SODIUM 139.6 mmol/L (134.5-145); TOTAL PROTEIN 6.98 g/dL (6.3-8.2)
[2021-10-22 11:12] LABS: PROTHROMBIN TIME 16.5 SEC (9.3-11.0)
--- NOTE | 2021-10-22 11:19 | DI ---
EXAM: Pelvis radiographs HISTORY: Fall TECHNIQUE: AP and frog-leg views of the bilateral hips and pelvis. COMPARISON: CT pelvis 07/08/2017 FINDINGS: Diffuse osteopenia which limits evaluation. No fracture or dislocation. Partially imaged left-sided generator and postsurgical changes of the lumbar spine. Mild degenerative changes of the bilateral hip joints. IMPRESSION: No acute fracture or dislocation.
--- NOTE | 2021-10-22 11:25 | DI ---
EXAM: Single frontal view of the chest HISTORY: Fall. COMPARISON: CT chest 06/07/2020 FINDINGS: Cardiomediastinal silhouette is upper limit of normal. There is no pneumothorax or effusio n. The lungs are clear. There is degenerative disease of the spine and left shoulder. IMPRESSION: No acute cardiopulmonary process or consolidation.
--- NOTE | 2021-10-22 12:47 | CT ---
EXAMINATION: CT LUMBAR SPINE WITHOUT CONTRAST HISTORY: Fall. TECHNIQUE: Computed tomography (CT) of the lumbar spine was performed according to standard protocol without intravenous contrast. Contrast Dose: None CT Dose Reduction Techniques Performed: Yes COMPARISON: CT lumbar spine 07/08/2017, MRI lumbar spine 04/18/2016 FINDINGS: Numbering/Segmentation: Six non-rib bearing lumbar type vertebral bodies. Last fully formed disk spa ce is designated L6-S1. Alignment: Increased lumbar lordosis. Grade 1 anterolisthesis of L5 on L6. Post-Surgical Changes/Hardware: L3-L4 posterior lumbar interbody fusion with rods and pedicle screws. No hardware fracture or loosening. Partial anterior and posterior ankylosis at that level with dec ompressive laminectomy. Additional posterior decompressive laminectomies from L4-S1 with small fluid collection/seroma in the laminectomy bed. Spinal cord stimulator in the left posterior back soft ti ssues with leads which can of the spinal canal at L1-L2 and continue into the dorsal epidural space. Bones: Diffuse osteopenia which limits detailed evaluation. No acute fracture. No chronic compressi on deformity. Partial fusion of the vertebral bodies of L3-S1. Disk Spaces: Mild degenerative disc disease of L1-L3. Soft Tissues: Postsurgical changes in the posterior paraspinal soft tissues of L2, S1 with scar/granu lation tissue. Small seroma in the laminectomy bed, similar to prior. Limited Chest/Abdomen: Colonic diverticulosis. Moderate atherosclerotic calcification of the abdomin al aorta. Cardiomegaly. Visualized Lower Thoracic Spine: There is no neuroforaminal stenosis. There is no spinal canal steno sis. Degenerative Changes: Circumferential disc bulges at L1-L2 and L2-L3. There is mild L1-L2 and modera te L2-L3 facet arthropathy with facet hypertrophy throughout the remainder of the fused levels. Ther e is mild to moderate left L2-L3 and moderate left L3-L4 neuroforaminal stenosis. There is moderate L2-L3 spinal canal stenosis. Limited Sacrum/Pelvis: Degenerative changes of the bilateral sacroiliac joints. IMPRESSION: No visualized fracture, however somewhat limited evaluation due to severe osteopenia/osteoporosis. Multilevel degenerative changes of the lumbar spine status post L3-L4 fusion and L3-S1 decompression as detailed including moderate spinal canal stenosis at L2-L3. All CT scans are performed using dose optimization techniques as appropriate to the performed exam an d include at least one of the following: Automated exposure control, adjustment of the mA and/or kV according t o size, and the use of iterative reconstruction technique.
--- NOTE | 2021-10-22 13:45 | CT ---
EXAM: CT HEAD WITHOUT CONTRAST. HISTORY: Fall, on anticoagulation. COMPARISON: CT head 12/26/2019 and MRI brain 04/01/2014. TECHNIQUE: Noncontrast CT images of the head were obtained. Axial reconstructions with sagittal and coronal reformats were provided. The submitted images are mildly limited by patient motion artifact . FINDINGS: Mild prominence of the sulci, basal cisterns and ventricles related to mild cortical volume loss. Re gions of decreased attenuation throughout the periventricular/deep/subcortical white matter may repre sent sequela of chronic microvascular ischemic disease. There is no evidence of an acute intracrania l hemorrhage. No mass effect or extra-axial fluid collection identified. Scattered dural calcificat ions. Singh-white differentiation is grossly unremarkable on the basis of CT imaging. The patient's head was tilted to the left side of the gantry without evidence of significant shift of the midline. Scattered vascular calcifications. No evidence of a calvarial fracture. Visualized paranasal sinus es are well-aerated. Mastoid air cells are aerated. Partially imaged postoperative and degenerative changes at the level of the cervical spine. The final report was faxed to the radiology department and emergency room at 1:39 p.m. on 10/22/2021. IMPRESSION: No evidence of an acute intracranial hemorrhage. Chronic findings as described. All CT scans are performed using dose optimization techniques as appropriate to the performed exam an d include at least one of the following: Automated exposure control, adjustment of the mA and/or kV according t o size, and the use of iterative reconstruction technique.
--- NOTE | 2021-10-22 13:51 | CT ---
EXAM: Noncontrast CT of the abdomen and pelvis HISTORY: Fall, abdominal pain COMPARISON: 07/11/2017 TECHNIQUE: Axial noncontrast CT of the abdomen and pelvis with sagittal and coronal reformats. FINDINGS: Mild multifocal atelectasis. The heart is enlarged. Noncontrast technique limits evaluation of abdominal viscera. There is also mild patient motion mary fact. A right hepatic lobe hypodensity is seen measuring 0.5 cm, too small to accurately characteriz e. The gallbladder has been removed. The unenhanced spleen, adrenals and pancreas appear within nor mal limits. There is similar mild bilateral perinephric fat stranding. A right renal calculus is se en measuring 0.4 cm. There is a small hiatal hernia. No abnormal bowel dilation is seen. Diverticulosis is identified wi thout evidence of diverticulitis. A left femoral hernia is seen containing a small segment of colon at the junction of the descending and sigmoid colon. The uterus has been removed. There is calcified atherosclerotic plaque of the aorta and some of its branches. A small fat-containing right femoral hernia is seen. No free air or free fluid is identifi ed. Ventral abdominal wall mesh is seen. Operative changes of L2-3 posterior fixation are identifie d. Operative changes of L3-4 and L4-5 interbody fusion are identified with laminectomies. An intrat hecal catheter is noted. No acute osseous abnormality is identified. There is mild ill-defined left buttock subcutaneous hematoma. IMPRESSION: No acute intra-abdominal findings. Mild ill-defined left buttock subcutaneous hematoma. Left femoral hernia containing a portion of colon without bowel obstruction. Small fat-containing ri ght femoral hernia. Diverticulosis. Other chronic and incidental findings as described above. All CT scans are performed using dose optimization techniques as appropriate to the performed exam an d include at least one of the following: Automated exposure control, adjustment of the mA and/or kV according t o size, and the use of iterative reconstruction technique.
[2021-10-22] MEDS ORDERED: MORPHINE 2 MG/ML SYRINGE ONE (14:30)
[2021-10-22] MEDS: MORPHINE 2 MG/ML VIAL IVP STA ×2 (14:34→14:36)
--- NOTE | 2021-10-22 16:08 | CT ---
EXAM: Noncontrast thoracic spine CT HISTORY: Fall, leg weakness COMPARISON: 07/08/[address], 06/07/[address] TECHNIQUE: Axial noncontrast CT of the thoracic spine with sagittal and coronal reformats. FINDINGS: Thoracic dextrocurvature and kyphosis is again seen. Mild remote compression deformity of T4 is iden tified as seen on previous CT. There is mild compression deformity of T2 which is new compared to th e prior exams. The other thoracic vertebrae are normal in height. No acute thoracic spine fractures are identified. There is mild to moderate multilevel disc height loss with anterior osteophyte form ation. No thoracic listhesis is identified. An intrathecal catheter is seen with tip at the level o f the T8. A remote sternal fracture is noted. IMPRESSION: Mild age indeterminate compression deformity of T2, new compared to 06/07/2020. Mild remote compression deformity of T4. Multilevel degenerative disc disease. Thoracic dextroscoliosis and kyphosis. All CT scans are performed using dose optimization techniques as appropriate to the performed exam an d include at least one of the following: Automated exposure control, adjustment of the mA and/or kV according t o size, and the use of iterative reconstruction technique.
--- NOTE | 2021-10-22 17:21 | CT ---
EXAM: Noncontrast cervical spine CT HISTORY: Bilateral leg weakness, fall COMPARISON: 12/26/[address], 06/07/[address] TECHNIQUE: Axial noncontrast CT of the cervical spine with sagittal and coronal reformats. FINDINGS: There is suboptimal patient positioning. The cervical vertebral bodies are normal in height. There is minimal remote anterior wedging T1. Mild superior endplate compression deformity T2 is seen which is new compared to 06/07/2020. Moderate to severe multilevel cervical disc height loss is identifie d. Multilevel cervical facet arthropathy is seen. There is 2 mm of anterior listhesis at C3-4. Ope rative changes of posterior elements are seen at C5-7. No abnormal prevertebral soft tissue swelling is seen. IMPRESSION: Mild compression deformity of T2, age indeterminate and new compared to 06/07/2020. Mild remote anterior wedging of C7. No acute cervical spine fracture identified. Moderate to severe multilevel cervical degenerative disc disease. Multilevel cervical facet arthropa thy. Operative change of the posterior elements of C5-C7. All CT scans are performed using dose optimization techniques as appropriate to the performed exam an d include at least one of the following: Automated exposure control, adjustment of the mA and/or kV according t o size, and the use of iterative reconstruction technique.
[2021-10-22 20:22] VITALS: BMI 22.1
[2021-10-22] MEDS ORDERED: CRESTOR PO SCH (21:00)
[2021-10-22] MEDS ORDERED: NEURONTIN PO SCH (21:00)
[2021-10-22 21:01] LABS: HEMATOCRIT 42.1 % (37.0-47.0); HEMOGLOBIN 13.5 g/dl (12.0-16.0)
[2021-10-22] MEDS ORDERED: HUMULIN R SUBCUT PRN (21:42)
[2021-10-22] MEDS ORDERED: COUMADIN PO SCH (22:00)
[2021-10-23 05:38] LABS: BASOPHILS % (AUTO) 0.3 % (0.0-3.0); EOSINOPHILS % (AUTO) 0.4 % (0.0-7.0); HEMATOCRIT 43.4 % (37.0-47.0); HEMOGLOBIN 13.5 g/dl (12.0-16.0); IMMATURE GRANULOCYTE % (AUTO) 0.4 % (0.0-5.0); LYMPHOCYTES # (AUTO) 4.4 K/uL (0.60-3.4); LYMPHOCYTES % (AUTO) 42.5 (10.0-50.0); MEAN CORPUSCULAR HEMOGLOBIN 30.4 pg (27.0-31.0); MEAN CORPUSCULAR HGB CONC 31.1 (31.8-35.4); MEAN CORPUSCULAR VOLUME 97.7 fl (81.0-99.0); MONOCYTES # (AUTO) 0.5 K/uL (0.4-2.0); MONOCYTES % (AUTO) 4.9 (0-10); NEUTROPHILS # (AUTO) 5.3 K/ul (2.0-6.9); NEUTROPHILS % (AUTO) 51.5 % (42.2-75.2); PLATELET COUNT 189 10^3/uL (140-440); RDW COEFFICIENT OF VARIATION 12.9 % (11.6-14.8); RED BLOOD COUNT 4.44 10^6/ul (4.20-5.40); WHITE BLOOD COUNT 10.31 K/ul (4.6-10.2)
[2021-10-23 05:52] LABS: ALANINE AMINOTRANSFERASE 27.6 U/L (0-35); ALBUMIN 4.13 g/dL (3.5-5.0); ALKALINE PHOSPHATASE 64.4 U/L (53-141); ASPARTATE AMINO TRANSFERASE 42.5 U/L (14-36); BILIRUBIN,TOTAL 1.68 mg/dL (0.2-1.3); BLOOD UREA NITROGEN 10.7 mg/dL (7-17); CALCIUM 9.88 mg/dL (8.4-10.2); CARBON DIOXIDE 31.5 mmol/L (22-30.0); CHLORIDE 101.3 mmol/L (98-107); CREATININE 0.71 mg/dL (0.60-1.30); GLUCOSE 107.1 mg/dL (74-106); POTASSIUM 3.53 mmol/L (3.5-5.1); TOTAL PROTEIN 6.8 g/dL (6.3-8.2)
[2021-10-23] MEDS ORDERED: JANUVIA PO SCH (09:00)
[2021-10-23] MEDS ORDERED: CYMBALTA PO SCH (09:00)
[2021-10-23 09:26] LABS: PROTHROMBIN TIME 16.4 SEC (9.3-11.0)
[2021-10-23] MEDS ORDERED: COUMADIN PO SCH (09:30)
[2021-10-23] MEDS ORDERED: TYLENOL PO ONE (09:31)
[2021-10-23 10:05] VITALS: BP 121/66; TEMP 97.6
--- NOTE | 2021-11-16 08:37 | SSS ---
DATE OF SERVICE: 10/23/21 REASON FOR ADMISSION: Back pain HISTORY OF PRESENT ILLNESS: 81 year old white female was brought to the emergency room by family because she had fallen at home, her foot got caught in the carpet or something like that and the patient went down upright and sat on her pelvis. The patient had CT scan of the head and MRI of the head, CT of the cervical spine, CT of the chest, CT of the pelvis, CT of abdomen and pelvis; all of them were negative for any acute injury. The patient had H&H done twice while she was in the emergency room with no change. CT of the lumbar spine also was negative along with C spine, no fresh fractures were noted. The patient was then hospitalized for further observation and pain control. The patient has a history of neuropathy, dyslipidemia and diabetes mellitus. The patient has multiple spinal surgeries especially involving cervical spine, kyphosis. The patient has history of COVID 19. She was hospitalized. REVIEW OF SYSTEMS: CONSTITUTIONAL: No night sweats. No fatigue, malaise, lethargy. No fever or chills. HEENT: Eyes: No visual changes. No eye pain. No eye discharge. ENT: No runny nose. No epistaxis. No sinus pain. No sore throat. No odynophagia. No ear pain. No congestion. RESPIRATORY: No cough, no congestion. No hemoptysis. No shortness of breath. CARDIOVASCULAR: No angina symptoms. No CHF symptoms. No atypical chest pain for CAD. No palpitations. No orthopnea. GASTROINTESTINAL: No abdominal pain. No nausea or vomiting. No diarrhea or constipation. No hematemesis. No hematochezia. GENITOURINARY: No dysuria. No hematuria. No obstructive symptoms. No discharge. No pain. No significant abnormal bleeding. MUSCULOSKELETAL: No musculoskeletal pain. No joint swelling. NEUROLOGICAL: Awake, alert, oriented to time, place and person. No headache. No neck pain. No syncope. No seizures. No dizziness. PSYCHIATRIC: Not anxious. No depression. No suicidal thoughts. No homicidal thoughts. SKIN: No rash. No lesions. No wounds. ENDOCRINE: No unexplained weight loss. No weight gain. HEMATOLOGIC/LYMPHATIC: No anemia. No purpura. No petechiae. No prolonged or excessive bleeding. No palpable lymph nodes. PAST HISTORY: Hysterectomy Tubal ligation PERSONAL/FAMILY HISTORY/SOCIAL HISTORY: The patient is a . Never a smoker. No alcohol abuse PHYSICAL EXAMINATION: GENERAL: The patient is oriented to time, place and person, doesn't seem to be in distress. HEENT: Head normocephalic, atraumatic. Eyes: Extraocular muscles are intact. Pupils are equal, round and reactive to light and accommodation. Ears: No lesions. Nose appeared normal. Throat: No exudate or erythema. NECK: Supple. No JVD, no carotid bruit. No lymphadenopathy or thyromegaly. Scar of C spine surgery with kyphosis. LUNGS: Decreased breath sounds but clear to auscultation. Percussion note normal. Chest symmetrical. HEART: S1, S2, no S3. No murmurs. No cyanosis or clubbing. No ascites. Pulses: Dorsalis pedis and posterior tibial pulses +1 bilaterally. ABDOMEN: Soft. Nontender. Bowel sounds active. No CVA tenderness. No mass felt. EXTREMITIES: No edema. Full range of motion of all extremities, equal. NEUROLOGIC: No focal deficit. Cranial nerves II through XII are grossly intact. No headache, no double vision or headache. SKIN: Not dry. Intact. Turgor - normal. LYMPHATIC: No palpable lymph nodes/no lymphedema. MUSCULOSKELETAL: Normal joints with no swelling. Muscle tone is normal. ALLERGIES: Cephalexin monohydrate MEDICATIONS: Crestor 20mg PO bedtime Gabapentin 300mg PO bedtime Januvia 50mg PO daily Cymbalta 60mg PO daily Warfarin 6mg PO daily LABS/EKG'S/X-RAY/ECHO/ABG: Hgb 13.5, hct 43, WBC 10,000 normal differential, creatinine 0.7, BUN 10, potassium 3.5, glucose 107. HOSPITAL COURSE: 81 year old white female was hospitalized after a fall and had multiple CT scans that were done as mentioned above like C spine, L spine, CT of the head, CT of the abdomen and pelvis, no few fractures were noted. H&H were monitored and she remained 13.5 with hct of close to 40. No evidence of active GI bleed. Her mental status stayed good and normal. By the next morning the patient was ready to go home. She is being taken to [facility] by her daughter Aurea. The patient is going to move from [place] to [place] permanently. Her condition at the time of discharge is stable. Her vitals were stable on the day of discharge. Temperature 98, pulse 80, respiratory rate 16, blood pressure 134/68 and pulse ox 98%. Entire physical exam was negative. Her INR was 1.63 so she was given extra dose of Coumadin. She was advised to take same dose she takes in the evening. DIAGNOSES: 1. Fall with weakness of the legs, rule out any internal hemorrhage, rule out any fractures of the spine. The patient has no history of having the fall, fall was weakness fall happened in the front of a few family members. Complaint of back pain with no acute injury. 2. Generalized osteoarthritis/osteoporosis 3. Multiple C spine surgeries 4. Kyphosis with osteoporosis 5. Neuropathy .6. Diabetes Mellitus 7. History of COVID 8. Dyslipidemia RECOMMENDATIONS/PLAN: 1. Continue the same medication as before 2. Advised to come back in 5-7 days for followup if the patient happened to be in [place] area TIME SPENT: More than 70 minutes. GLADYSD
--- NOTE | 2021-11-16 08:38 | PN ---
FIRST DAY: Level 5 FINAL DAY: D as in discharge MTDD
== END 2021-10-23 12:50 | disposition home or self-care (01) ==
LOC: MEDSURG A 09:51 → ED 09:51 → MEDSURG A 18:31
PROVIDERS: ADMIT Internal Medicine; ATTEND Internal Medicine
DX: Z98.890 Other specified postprocedural states; M62.81 Muscle weakness (generalized); Y93.K1 Activity, walking an animal; M54.2 Cervicalgia; Z79.01 Long term (current) use of anticoagulants; Y92.89 Other specified places as the place of occurrence of the external cause; E11.9 Type 2 diabetes mellitus without complications; M54.50 Low back pain, unspecified; Y99.9 Unspecified external cause status; Z86.16 Personal history of COVID-19; M15.0 Primary generalized (osteo)arthritis; W18.09XA Striking against other object with subsequent fall, initial encounter; Y92.9 Unspecified place or not applicable; M40.10 Other secondary kyphosis, site unspecified; T07.XXXA Unspecified multiple injuries, initial encounter